=== PATIENT | female | born 1970 | race Caucasian/White ===

== ENCOUNTER 2019-12-11 21:33 | Inpatient (IN) | payer OTHER, SELFPAY ==
--- NOTE | ~2019-12-11 | XR_ITS ---
XR chest 1V portable DATE: 12/11/2019 22:00 INDICATION: Chest pain. STEMI. TECHNIQUE: Portable upright AP chest on 12/11/2019 at 2154 hours COMPARISON: 12/20/2018 2 view chest FINDINGS: Normal heart size. No pulmonary vascular congestion or pleural effusion or pneumothorax. No pulmonary infiltrate or consolidation. Degenerative spurring of the thoracic spine. IMPRESSION: No active cardiopulmonary disease Reviewed, dictated and finalized at location A.
[2019-12-11 21:38] VITALS: BP 121/87; PULSE 88; RESP 16; TEMP 36.5; O2SAT 100
--- NOTE | 2019-12-11 21:38 | ED.CHESTPAIN ---
HPI - Chest Pain General Chief Complaint: Chest Pain Stated Complaint: CP Time Seen by Provider: 12/11/19 21:35 Source: patient and RN notes reviewed Mode of arrival: other Limitations: no limitations History of Present Illness HPI narrative: Pt is a 48 y/o female who presents to the ED with c/o midsternal chest pain that radiates to her left arm that began at 7 PM today. Pt has a hx of GERD. Pt also reports back pain, dyspnea, chills, and diaphoresis, but denies cough and fever. Pt denies recent travel, cough, myalgias, no known COVID contacts. Pt without history of heart problems per patient. She is a daily smoker. Pt denies taking any anticoagulants and any ASA today. MD complaint: chest pain Onset (ago): hour(s) (2) Timing of current episode: constant Pain location: other (midsternal) Pain radiation: left arm Associated symptoms: diaphoresis, dyspnea and other (chills, back pain) Treatment prior to arrival: none Related Data Allergies Allergy/AdvReac Type Severity Reaction Status Date / Time No Known Allergies Allergy Verified 12/20/18 11:33 Review of Systems Review of Systems: Narrative: CONSTITUTIONAL: Reports chills. Denies fever. CARDIOVASCULAR: Reports mnidsternal chest pain and diaphoresis. RESPIRATORY: Reports dyspnea. Denies cough. MUSCULOSKELETAL: Reports back pain. All systems reviewed & are unremarkable except as noted in HPI and below PMFSH Past Medical History Medical History (Updated 12/11/19 @ 21:57 by Marva Valiente) HTN (hypertension) noncompliant Molar TIA (transient ischemic attack) Surgical History Surgical History (Updated 12/11/19 @ 21:57 by Marva Valiente) History of tubal ligation Hx of section x3 Hx of cholecystectomy Social History Social History (Updated 12/11/19 @ 21:57 by Marva Valiente) Smoking packs per day: 1 Smoking cigarettes per day: 20.0 Years smoked: 26 Smoking pack-years: 26.00 Smoking status: Current every day smoker Tobacco type: cigarettes Exam Narrative: Exam Narrative: CONSTITUTIONAL: Awake, alert, conversant, moaning, mildly diaphoretic HEAD: Normocephalic, atraumatic. EYES: EOMI, conjunctiva clear ENT: Nares patent. Mucous membranes moist. NECK: Full range of motion RESPIRATORY: No respiratory distress, speaking in full sentences, no tachypnea HEART: Regular rate ABDOMEN: Non distended, non tender EXTREMITIES: Normal range of motion. No edema. Radial pulses present (2+, left) SKIN: Warm, dry, no rash. NEUROLOGIC: No focal deficits. Alert and oriented x3. Course Course Emergency Course: Pt presented for evaluatoin of chest pain and found to have + STEMI, anterolateral ST elevation with reciprocal changes on EKG. Pt hemodynamically stable. Pt given ASA in ED. Also given nitro and morphine. Dr. Lora recommended 180 Brilinta and loading bolus of heparin. Pt without any recent travel, no myalgia, fever. Pt not presenting with COVID type symptoms. Per Dr. Lora, patient to be taken to labeling associate. Lab results notable for elevated troponin. No severe electrolyte derangement. Pt updated, and taken to labeling associate urgently. Pt remained hemodynamically stable while in the ED. Consultations Consultation #1: Discussed case with Dr. Lora (Dust Box Tender). Accepts pt to Associate Project Manager, advises heparin bolus and 180 mg PO Brilinta. Requests pt wears a mask to Associate Project Manager. Date: 12/11/19 Time: 21:45 Vital Signs Vital signs: Vital Signs Temperature 36.5 C 12/11/19 21:38 Pulse Rate 88 12/11/19 21:38 Respiratory Rate 16 12/11/19 21:38 Blood Pressure 121/87 12/11/19 21:38 Pulse Oximetry 100 12/11/19 21:38 Temperature 36.5 C 12/11/19 21:38 Pulse Rate 86 12/11/19 22:01 Respiratory Rate 18 12/11/19 21:59 Blood Pressure 130/89 12/11/19 21:59 Pulse Oximetry 100 12/11/19 21:59 MDM - Chest Pain Lab Data Result diagrams: 12/11/19 21:49 12/11/19 21:49 Labs: Lab Results 12/11/1912/10
--- NOTE | 2019-12-11 21:40 | ECG_ITS ---
Measurements Intervals [place] Rate: 86 P: 64 WA: 146 QRS: 15 QRSD: 96 T: -16 QT: 339 QTc: 408 Interpretive Statements SINUS RHYTHM ST ELEVATION SEPTAL MYOCARDIAL INFARCTION- ACUTE HIGH LATERAL ST ELEVATION MYOCARDIAL INJURY- ACUTE BASELINE ARTIFACT- II, III ABNORMAL ECG Electronically Signed On 12-15-2019 16:28:37 CDT by Faraz Barrera D.O.
[2019-12-11] MEDS: ONDANSETRON HCL ODT 4 MG TABLET (21:47)
[2019-12-11] MEDS: MORPHINE SULFATE 2 MG/ML INJ (21:47)
[2019-12-11] MEDS: ASPIRIN 81 MG CHEWABLE TABLET 324 MG PO (21:48)
[2019-12-11] MEDS: TICAGRELOR 90 MG TABLET 180 MG PO (21:51)
[2019-12-11 21:59] VITALS: BP 130/89; PULSE 90; RESP 18; O2SAT 100
[2019-12-11 22:01] VITALS: PULSE 86
[2019-12-11 22:06] LABS: Basophils Percent Auto 0.3 % (0.2-1.2); Eosinophils Percent Auto 0.2 % (0-4.4); Hematocrit 40.7 % (37.0-47.0); Hemoglobin 13.3 g/dL (12.0-15.0); Immature Granulocyte Absolute 0.09 K/mm3 (0.00-0.031); Immature Granulocyte Percent A 0.6 % (0-0.5); Lymphocytes Absolute Auto 2.01 K/mm3 (0.9-3.2); Mean Corpuscular HGB Conc 32.7 g/dl (32-36); Mean Corpuscular Hemoglobin 29.1 pg (26-34); Mean Corpuscular Volume 89.1 fl (80-100); Monocytes Absolute Auto 0.8 K/mm3 (0.1-0.6); Monocytes Percent Auto 5.6 % (2.6-8.5); Neutrophils Absolute Auto 11.4 K/mm3 (1.3-6.7); Neutrophils Percent Auto 79.3 % (45.5-73.1); Platelet Count Result 425 k/mm3 (150-375); Red Blood Count 4.57 M/mm3 (4.2-5.4); White Blood Count 14.3 K/mm3 (4.5-10.0)
[2019-12-11] MEDS: MORPHINE SULFATE 4 MG/ML INJ IV PUSH (22:14)
[2019-12-11 22:22] LABS: INR 0.9; Prothrombin Time 11.6 Seconds (11.1-14.7)
[2019-12-11 22:23] LABS: Alanine Aminotransferase 12 U/L (4-35); Albumin Level 4.6 g/dL (3.5-5.1); Alkaline Phosphatase 63 U/L (38-126); Aspartate Amino Transferase 25 U/L (14-36); Bilirubin,Total 0.3 mg/dL (0.2-1.3); Blood Urea Nitrogen 22 mg/dL (7-17); Calcium 9.5 mg/dL (8.4-10.2); Carbon Dioxide 22 mmol/L (22-30); Chloride 97 mmol/L (98-107); Estimated CRCL calculation 119 ml/min; Estimated Glomerular Filt Rate > 60; Glucose 131 mg/dL (65-105); Potassium 4.3 mmol/L (3.4-5.0); Sodium 130 mmol/L (137-145)
[2019-12-11 22:27] LABS: NT Pro B Type Natriuretic Pept 162 PG/ML (5-100)
[2019-12-11 22:32] LABS: Troponin I 0.074 ng/mL (0.000-0.034)
--- NOTE | 2019-12-11 23:59 | WPDCARDPROC ---
Cardiac Cath Procedure Note Date of procedure:: 12/11/19 Performing physician:: Sav Lora MD Indication:: Acute coronary syndrome -anteroseptal ST-elevation myocardial infarction Procedure Procedure note:: CARDIAC CATHETERIZATION AND EMERGENT PERCUTANEOUS CORONARY INTERVENTION REPORT DATE OF PROCEDURE: 12/11/2019 INDICATION FOR PROCEDURE: ACUTE CORONARY SYNDROME - ANTEROSEPTAL ST ELEVATION MYOCARDIAL INFARCTION BRIEF CLINICAL HISTORY: 48-year-old female with no known prior cardiac history; heavy tobacco abuse [facility] with approximately 2 hour history of chest discomfort. Her EKG showed ST elevation in the anteroseptal leads. Cardiac catheterization lab was activated for primary PCI. PROCEDURES PERFORMED: 1. Left heart catheterization- Selective left and right coronary angiogram; left ventriculogram and hemodynamic assessment 2. Primary percutaneous coronary intervention- Balloon angioplasty and stenting of totally occluded ostial LAD with placement of 2 sirolimus eluting stents ( 3.0 x 26 mm, 2.5 x 33 mm) from ostial-proximal to mid LAD in an overlapping fashion with yazidi of JULIENNE 3 flow. 3. Selective right common femoral angiogram and deployment of Angio-Seal hemostatic device 4. Moderate sedation-CPT code 08447 MODERATE SEDATION: Midazolam 1 mg; fentanyl 25 mcg. Start time 2246 , Stop time 2351 ; Total [id number] time 65 minutes; Elsa Barnes RN was trained observer for moderate sedation. ACCESS SITE: Right common femoral artery PROCEDURE NOTE: After obtaining informed consent, patient was emergently brought to catheterization lab and prepped and draped in a usual sterile manner. After local anesthesia with lidocaine, right common femoral artery access was taken with micropuncture needle followed by insertion of a 6 Cameroonian sheath. Selective left and right coronary angiogram was performed using 6 Cameroonian 3.5 CLS guide catheter and JR4 catheters respectively. Orthogonal views were taken. After completion of percutaneous coronary intervention, 5 Cameroonian pigtail catheter was advanced to the LV cavity, LV pressures were measured followed by left ventriculogram. The catheter was flushed, and withdrawn from the LV cavity, and gradient across the aortic valve were major on the pullback. The angiographic findings and details of intervention are given below. FINDINGS: LEFT MAIN CORONARY: The left main coronary artery is a medium caliber vessel without angiographically significant focal stenosis. LEFT ANTERIOR DESCENDING ARTERY: The LAD is totally occluded at its ostium. After wiring the stenosis and after balloon angioplasty, the angiogram showed diffuse disease in the proximal and mid LAD. The LAD tapers distally and reaches the LV apex. the 1st diagonal branch has subtotal occlusion at its ostium and is a small to medium caliber vessel. Second diagonal branch is a major diagonal branch which has moderate diffuse disease in the proximal segment. LEFT CIRCUMFLEX ARTERY: The left circumflex artery is a small to medium-sized vessel with hazy moderate stenosis at its ostium which improved after stenting of the ostial LAD; diffuse 70-80% stenosis is seen in the in the mid segment. The vessel essentially continues as OM branch. The main vessel is a very small caliber vessel and continues in the AV groove. RIGHT CORONARY ARTERY: the RCA is a large size, dominant vessel. Mild diffuse disease is seen in RCA. The PDA branch is a medium to large size vessel and has mild diffuse disease. PLV branch is a medium-sized vessel and has high-grade about 95% stenosis in the proximal segment. LEFT VENTRICULOGRAM: Overall LV systolic function is preserved with ejection fraction about 55%; anterior wall is hypokinetic. LVEDP elevated at 25 mmHg. HEMODYNAMIC ASSESSMENT: Opening pressure 101/82 mmHg , closing pressure 108/65 mmHg , LVEDP mmHg 25 mmHg; no significant gradient across aortic valve on the pullb
[2019-12-12] VITALS (15 sets, daily range): BP systolic 94–120; BP diastolic 48–78; PULSE 65–85; RESP 13–27; TEMP 36.5–36.6; O2SAT 97–100; BMI 27.1
--- NOTE | 2019-12-12 | ECG_ITS ---
Measurements Intervals [place] Rate: 81 P: 70 UT: 172 QRS: 56 QRSD: 97 T: 89 QT: 372 QTc: 432 Interpretive Statements SINUS RHYTHM CANNOT RULE OUT SEPTAL INFARCT, AGE INDETERMINATE BORDERLINE T WAVE ABNORMALITY- LATERAL LEADS BASELINE ARTIFACT- I, III, V1 ABNORMAL ECG Electronically Signed On 12-12-2019 16:48:00 CDT by Faraz Barrera D.O.
--- NOTE | 2019-12-12 00:16 | PC.NURSE ---
This patient, Coni Barros, was admitted to Intensive Care Unit-12. Patient/family oriented to hospital policies and general routines including ID bracelet, bed and alarms, visiting hours, pain management, procedures, bathroom and other care routines, personal items, smoking policy, room service/diet, and visiting hours. Valuables list has been completed. Information on how to activate the Rapid Response Team has been discussed. Patient/Family are encouraged to report perceived risks to care and to ask questions if they do not understand what they are told or what they should do.
--- NOTE | 2019-12-12 00:19 | PM.IMHP ---
H&P: HPI History of Present Illness Chief complaint: Stemi - Narrative: Coni Barros is a 48 year old female Date of service: 12/11/2019 chief complaint: Chest pain x2 hours HPI: 48-year-old female with no known prior cardiac history; heavy tobacco abuse was brought to [facility] ER with chest pain which started about 2 hours prior to arrival. Prior to that, patient states that she was in her usual state of health. Her symptoms were associated with shortness of breath, dizziness without syncope. She denies any prior cardiac history. She is a heavy smoker. Patient's EKG in the ER showed sinus rhythm, ST-elevation in the anteroseptal leads. Cardiac catheterization was activated for primary PCI. Patient was given aspirin and loading dose of ticagrelor in the ER. She was also given heparin. Apparently, patient vomited, therefore she was re-loaded with ticagrelor 180 mg in the labor economics teacher. Her emergent coronary angiogram showed flush occlusion of ZVD-hskkhih-zafhxow vessel. She underwent complex, primary PCI with balloon angioplasty and stenting of ostial, proximal -mid LAD using 2 sirolimus eluting stents in an overlapping fashion with samaritan of JULIENNE 3 flow. Coronary angiogram also showed high-grade stenosis in the mid LCX, and RPL branch. Ejection fraction about 55% with anterior wall hypokinesis. Patient's chest pain resolved after completion of successful Intervention. Review of Systems Constitutional: Constitutional: Denies chills, Denies fatigue, Denies fever(s) and Denies headache(s) Eyes: Eyes: Reports as per HPI, Denies change in vision, Denies loss of vision and Denies eye pain ENT: Reports as per HPI, Reports Normal hearing present, Denies headache(s), Denies lip swelling, Denies epistaxis and Denies sore throat Cardiovascular: Cardiovascular: Reports as per HPI, Reports chest pain, Denies syncope, Denies irregular heart rhythm, Reports lightheadedness and Reports dyspnea Respiratory: Respiratory: Reports as per HPI, Denies cough, Reports dyspnea and Denies wheezing Gastrointestinal: Gastrointestinal: Reports as per HPI, Denies abdominal pain, Denies melena, Denies nausea and Denies vomiting Genitourinary: Genitourinary: Reports as per HPI Musculoskeletal: Musculoskeletal: Reports as per HPI, Denies myalgias, Denies muscle cramps and Denies muscle weakness Integumentary/Breasts: Skin/Breast: Reports as per HPI, Denies pruritus and Denies rash Neurologic: Reports as per HPI, Reports Normal hearing present, Denies behavioral changes, Denies syncope, Denies headache(s) and Denies loss of vision Psychiatric: Psychiatric: Reports as per HPI, Reports anxiety and Denies behavioral changes Endocrine: Endocrine: Reports as per HPI, Denies fatigue, Denies polydipsia and Denies polyuria Hematologic/Lymphatic: Hematologic/Lymphatic: Reports as per HPI, Denies easy bleeding and Denies easy bruising Allergic/Immunologic: Allergic/Immunologic: Reports as per HPI, Denies lip swelling and Denies wheezing PMFSH Past Medical History Medical History HTN (hypertension) noncompliant Molar TIA (transient ischemic attack) Surgical History Surgical History History of tubal ligation Hx of section x3 Hx of cholecystectomy Social History Social History Smoking packs per day: 1 Smoking cigarettes per day: 20.0 Years smoked: 26 Smoking pack-years: 26.00 Smoking status: Current every day smoker Tobacco type: cigarettes Alcohol intake: never Substance use: never Spiritual care concerns: No Meds Home Medications and Allergies Allergies Allergy/AdvReac Type Severity Reaction Status Date / Time No Known Allergies Allergy Verified 12/20/18 11:33 Vital Signs Vital Signs - 24 hr 12/11/19 21:38 12/11/19 21:59 12/11/19 2
[2019-12-12 01:13] LABS: Alanine Aminotransferase 64 U/L (4-35); Albumin Level 3.6 g/dL (3.5-5.1); Alkaline Phosphatase 76 U/L (38-126); Aspartate Amino Transferase 198 U/L (14-36); Bilirubin,Total 0.3 mg/dL (0.2-1.3); Blood Urea Nitrogen 18 mg/dL (7-17); Calcium 8.4 mg/dL (8.4-10.2); Carbon Dioxide 20 mmol/L (22-30); Chloride 101 mmol/L (98-107); Cholesterol 176 mg/dL (0-200); Estimated CRCL calculation 128 ml/min; Estimated Glomerular Filt Rate > 60; Glucose 110 mg/dL (65-105); HDL Direct 59 mg/dL; Potassium 3.9 mmol/L (3.4-5.0); Sodium 132 mmol/L (137-145); Triglycerides 65 mg/dL (<150)
[2019-12-12 01:18] LABS: LDL Cholesterol Direct 101 mg/dL
[2019-12-12] MEDS: ATORVASTATIN 40 MG TABLET 80 MG PO (08:21)
[2019-12-12] MEDS: LOSARTAN POTASSIUM 25 MG TABLET PO (08:22)
[2019-12-12] MEDS: METOPROLOL TARTRATE 12.5 MG TABLET PO (08:22)
[2019-12-12] MEDS: TICAGRELOR 90 MG TABLET PO (08:22)
[2019-12-12] MEDS: ASPIRIN 81 MG ENTERIC TABLET PO (08:22)
--- NOTE | 2019-12-12 11:10 | PC.NURSE ---
Received patient from ICU via wheelchair with ICU staff. Patient awake and alert. Steady on feet and independent from wheelchair to bed. athletic monitor placed on patient. Patient denies pain and no distress noted. Stat seal noted to right groin without hematoma. Gauze and tegaderm dry and intact to site. Patient settled in room and oriented to unit and call light.
--- NOTE | 2019-12-12 11:11 | PC.NURSE ---
Patient transferred to [facility] at 1105. Patient had no medications to transfer with her.
--- NOTE | 2019-12-12 11:41 | WPDCNINT ---
Assessment and Plan Assessment and plan (1) ST elevation KS (STEMI): Qualifiers: Involved coronary artery: other anterior wall coronary artery Qualified Code(s): I21.09 - ST elevation (STEMI) myocardial infarction involving other coronary artery of anterior wall Code(s): I21.3 - ST elevation (STEMI) myocardial infarction of unspecified site Status: Acute Assessment and Plan: patient presented with chest pain, which shortness of breath, diaphoresis, with radiation to the left arm. EKG showed anterolateral myocardial injury - patient had a PCI/balloon angioplasty with stent x2 to proximal-mid segment of the LAD. - Patient also has 70-80% diffuse stenosis of mid LCX - will hydrate about 95% stenosis of proximal segment of RPL branch preserved overall LV systolic function, EF 55%, anterior wall was hypokinetic. - Patient started on aspirin, Brilinta, beta-mani, atorvastatin and losartan (2) Tobacco abuse: Code(s): Z72.0 - Tobacco use Status: Acute Assessment and Plan: counseled patient on cessation of smoking, discussed with the regarding negative effects of nicotine Additional Plan discussed with patient updated with her condition and plan of care. Code status: Full code Critical care time spent: 37 minutes Due to a high probability of clinically significant, life threatening deterioration, the patient required my highest level of preparedness to intervene emergently and I personally spent this critical care time directly and personally managing the patient. This critical care time included obtaining a history; examining the patient; pulse oximetry; ordering and review of studies; arranging urgent treatment with development of a management plan; evaluation of patient's response to treatment; frequent reassessment; and discussions with other providers. It was exclusive of separately billable procedures and treating other patients and teaching time. Please see Assessment and Plan section and the rest of the note for further information on patient assessment and treatment Nutritionist Public Health Consult Note Consult date: 12/12/19 Time Seen: 06:58 Reason for consult: STEMI, status post PCI /balloon angioplasty and WALI x2 to LAD. EF 55% HPI: Coni Barros is a 48 year old female with significant past medical history of smoking, no known coronary artery disease the ED with complains of midsternal chest pain which started 2 hours prior to arrival. chest pain was this was with shortness of breath, dizziness and chest heaviness. Chest pain also radiated to the arm. EKG showed anterolateral myocardial injury. Patient was taken emergently to cardiac catheterization lab for coronary angiogram status post PCI/balloon angioplasty and WALI x2 to LAD, EF 55%. Patient also has a high-grade stenosis of the proximal segment of RPL branch and 70-80% diffuse stenosis of mid left circumflex. Patient was transferred to the ICU for further management. patient seen and examined the ICU. Patient is asymptomatic, states he feels much better. patient states she was to go home, is upset/angry for no reason. Ungrateful. Denies any chest pain, shortness of breath, abdominal pain, nausea vomiting at this time Review of Systems Review of Systems: All systems reviewed & are unremarkable except as noted in HPI and below PMFSH Past Medical History Medical History HTN (hypertension) noncompliant Molar TIA (transient ischemic attack) Surgical History Surgical History History of tubal ligation Hx of section x3 Hx of cholecystectomy Social History Social History Smoking packs per day: 1 Smoking cigarettes per day: 20.0 Years smoked: 20 Smoking pack-years: 20.00 Smoking status: Current every day smoker Tobacco type: cigarettes
--- NOTE | 2019-12-12 11:59 | PC.NURSE ---
Called to room by patient. Patient states she has to complete her unemployment TODAY. Patient states she wants to leave no matter what. I explained to patient that she just had a cardiac procedure and it is strongly recommended that she stay in the hospital for another night. Patient states she understands the risks and wants to leave. Called nursing vocational rehabilitation supervisor and notified him of same. Bhaun nursing vocational rehabilitation supervisor to come up to floor and discuss further with patient.
--- NOTE | 2019-12-12 12:10 | PC.NURSE ---
Dr. Lora here to see patient and discuss risks of leaving today. Bhanu nursing sample room supervisor to room with Dr. Lora.
--- NOTE | 2019-12-12 12:44 | PC.NURSE ---
Patient remains insistent on leaving today. All risks of leaving AMA have been explained to patient by Dr. Garcia up to and including the risk of and/or recurring NM. Patient's d/c meds were transmitted to [facility] by Dr. Lora and patient did receive notice that they were ready for pickup. I explained to patient the importance of obtaining these meds and taking them as prescribed. Patient signed AMA papers and was escorted to front door by ASSISTANT MEDIA PLANNER. Bhanu nursing supervisor coil winding aware. Notified Roseline dela cruz RN.
--- NOTE | 2019-12-12 18:16 | PC.NURSE ---
I was called by the patient's RN and notified of patient's desire to leave against medical advice. I went bedside. I discussed the importance of patient staying to ensure proper post heart catheter care including monitoring of new medications and starting new home prescriptions. It was stressed to the patient the need to stay due to her home medications were not set up yet. Coni was told if she did not continue on the brilinta, her heart stents will likely reocclude and result in another heart attack or . She was adamant that she was going to leave despite being educated on imminent risks of doing so. I went to desk and called Dr Lora, who happened to be near by and explained the situation to him. He was already on the unit and accompanied myself back to the patient's room. Dr Lora then attempted to convince the patient again to stay for monitoring overnight and to allow for home medications to be set up for her. Dr Lora also bluntly stressed risk of or recurrent FL in the near future if patient failed to comply with pharmacotherapy. Patient expressed understanding and seemed agreeable to stay. Dr Lora and myself then left patient's room. Not long after, industrial staff nurse again called me to discuss patient's desire to leave AMA. I returned to room to find patient dressed in street clothes and she told me her son was here to pick her up. She signed AMA papers and was taken out by wheelchair. Dr Lora was later updated patient left AMA.
--- NOTE | 2019-12-14 11:53 | PM.DS ---
DS: Diagnosis Admitting Diagnosis Admitting Diagnosis: ST elevation (STEMI) myocardial infarction involving other coronary artery of anterior wall DS: Summary Hospital Course Reason for hospitalization: Acute coronary syndrome-anteroseptal ST-elevation microinfarction Hospital Course: 48-year-old female with no known prior cardiac history; heavy tobacco abuse was brought to [facility] ER on 12/11/2019 with chest pain which started about 2 hours prior to arrival. Her EKG showed ST-elevation in the anteroseptal leads. Cardiac catheterization was activated for primary PCI. Her emergent coronary angiogram showed flush occlusion of [id number]-[id number]-[id number] vessel. She underwent complex, primary PCI with balloon angioplasty and stenting of ostial, proximal -mid LAD using 2 sirolimus eluting stents in an overlapping fashion with worship of JULIENNE 3 flow. Coronary angiogram also showed high-grade stenosis in the mid LCX, and RPL branch. Ejection fraction about 55% with anterior wall hypokinesis. Patient's chest pain resolved after completion of successful Intervention. Patient was later admitted to the ICU. In the morning, event to evaluate the patient and she was feeling better and was chest pain-free. However, she indicated that she wanted to leave the hospital. She said that she was bored and had better things to do at home . I discussed the importance of hospital stay due to the fact that she just presented with massive anteroseptal SD and status post complex PCI with placement of 2 drug-eluting stents. Patient voiced understanding. She was later transferred to the telemetry bed. I was called by the rooming house keeper that patient wants to leave AMA. I went back to patient's room along with the rooming house keeper and discuss with her the importance of hospital stay for another night. She was counseled about medication compliance as well. Patient was cautioned that she has risk for rehospitalization, and risk for stent thrombosis, recurrent SD and she is not compliant with medications. She seemed to voiced understanding with some reluctance. Later in the day, I was informed by the rooming house keeper that patient had left against medical advice soon after the conversation in the morning. Time spent discussing smoking cessation with patient: 3 to 10 minutes Status at Discharge Cognitive/behavioral status at discharge: Patient appeared irritable, however, she stated that she is able to make decisions for herself. Functional status at discharge: independent ambulation Time Spent with Patient Time attestation: Total time spent providing and/or coordinating discharge services: 40 minutes which included evaluation of the patient, counseling regarding hospital stay and medication compliance, coordination with the care team. Time spent: Greater than 30 minutes Exam Const: General: no acute distress, alert and awake HENMT: Head: normocephalic and atraumatic Ears: hearing grossly normal bilaterally and external ears normal General nose exam: Normal external nose present and no epistaxis Face and sinus: normal facial exam and no ecchymosis Mouth: Yes tongue normal and Yes moist mucous membranes Teeth and gingiva: dentition normal Eyes: Conjunctivae: conjunctivae normal Sclera: sclerae normal Pupils: Equal, round and reactive pupils present EOM: EOMs intact bilaterally Neck: Neck: normal visual inspection, supple and no JVD Thyroid: thyroid normal Carotids: normal carotid upstroke Resp: Effort & Inspection: normal respiratory effort and able to speak in complete sentences Auscultation: clear to auscultation bilaterally Cardio: Jugular venous distension: no JVD Rate: regular rate Rhythm: regular rhythm Heart sounds: S1 normal heart sound present, S2 normal heart sound present and no murmurs GI: Inspection: normal to inspection GI Palp: No abdominal tenderness Auscultation: normal bowel sounds Skin: Other: no rash on exposed areas, no cya
== END 2019-12-12 12:40 | disposition left against medical advice (07) | DRG 174 ==
LOC: ANHED 21:54 → ANHICU 22:03 → ANH3MED 12-12 11:28
PROVIDERS: Admitting Provider Internal Medicine Cardiovascular Disease; Emergency Provider Emergency Medicine; Visit Provider Internal Medicine Cardiovascular Disease
PROC: 4A023N7 Measurement of Cardiac Sampling and Pressure, Left Heart, Percutaneous Approach (ICD-10-PCS; CPT 93452; principal; 2019-12-11 22:30)
PROC: 027035Z Dilation of Coronary Artery, One Artery with Two Drug-eluting Intraluminal Devices, Percutaneous Approach (ICD-10-PCS; 2019-12-11 22:30)
PROC: 027035Z Dilation of Coronary Artery, One Artery with Two Drug-eluting Intraluminal Devices, Percutaneous Approach (ICD-10-PCS; 2019-12-11 22:30)
DX: I21.09 ST elevation (STEMI) myocardial infarction involving other coronary artery of anterior wall (principal); F17.210 Nicotine dependence, cigarettes, uncomplicated; I25.10 Atherosclerotic heart disease of native coronary artery without angina pectoris
CPT/HCPCS: 36415; 71045; 80053; 80061; 83880; 84484; 85025; 85610; 85730; 93005; 93458; 96374; 96375; 99291; A9270; C1725; C1760; C1769; C1874; C1887; C1894; C9606; G0269; J1644; J2250; J2270; J3010; J7030

== ENCOUNTER 2020-07-06 15:00 | Outpatient (RCR) | payer OTHER, SELFPAY ==
[2020-04-14 15:22] VITALS: PULSE 73
--- NOTE | 2020-05-31 17:08 | PCCPR ---
Coni absent today due to migraine.
== END 2020-07-06 18:51 | disposition home or self-care (01) ==
LOC: ANHCPREHAB 15:00
PROVIDERS: PCP Emergency Medicine; Visit Provider Nurse Practitioner Adult Health
DX: Z95.5 Presence of coronary angioplasty implant and graft (principal); I25.2 Old myocardial infarction
CPT/HCPCS: 93798

== ENCOUNTER 2021-07-16 14:42 | Emergency (ER) | payer OTHER, SELFPAY ==
[2021-07-16 14:51] VITALS: BP 115/61; PULSE 79; RESP 18; TEMP 36.5; O2SAT 98
--- NOTE | 2021-07-16 15:44 | ED.URI ---
HPI - URI/Sore Throat General Chief Complaint: Upper Respiratory Infection Stated Complaint: Cough Time Seen by Provider: 07/16/21 15:17 Source: patient and RN notes reviewed Mode of arrival: ambulatory Limitations: no limitations History of Present Illness HPI Narrative: Patient presents today with a 1 week history of postnasal drip, cough, headache, chills, body aches. Denies sore throat, shortness of breath, fever. She recently had a COVID-19 test that was negative. Patient works in a [employer] and states that her copious postnasal drip, cough, and copious runny nose prevents her from working appropriately. She has not tried any [id number]-[id number] medications for symptoms prior to arrival, however, she did try a humidifier at home without relief. Related Data Home Medications Medication Instructions Recorded Confirmed aspirin [Aspirin Low Dose] 81 mg PO DAILY 04/14/20 07/16/21 atorvastatin 80 mg PO HS 04/14/20 07/16/21 metoprolol tartrate 12.5 mg PO BID 04/14/20 07/16/21 ticagrelor [Brilinta] 90 mg PO Q12H 04/14/20 07/16/21 Allergies Allergy/AdvReac Type Severity Reaction Status Date / Time No Known Allergies Allergy Verified 07/16/21 15:15 Review of Systems Review of Systems: CONSTITUTIONAL: Denies body aches, fever. + Chills, body aches EYES: Denies visual changes, redness, or discharge. ENT: Denies rhinorrhea, congestion, sore throat, or otalgia.+ Postnasal drip CARDIOVASCULAR: Denies chest pain, palpitations, or edema. RESPIRATORY: Denies dyspnea.+ Cough GASTROINTESTINAL: Denies abdominal pain, nausea, vomiting, or diarrhea. GENITOURINARY: Denies dysuria or hematuria. SKIN: Denies rash, itching, or wounds. MUSCULOSKELETAL: Denies back pain, joint pain, or myalgia. NEUROLOGIC: Denies numbness, tingling, or weakness.+ Headache PSYCH: Denies depression or anxiety. [facility] Past Medical History Medical History (Updated 07/16/21 @ 15:50 by Olga Burgos, [facility], ) HTN (hypertension) noncompliant Molar TIA (transient ischemic attack) Surgical History Surgical History History of tubal ligation Hx of section x3 Hx of cholecystectomy Family History Family History Other Adopted Social History Social History Smoking packs per day: 0.75 Smoking cigarettes per day: 15.0 Years smoked: 30 Smoking pack-years: 22.50 Smoking status: Former smoker Tobacco type: cigarettes and cigars Alcohol intake: never Substance use: never Spiritual care concerns: No Comments At time of signature, I have reviewed and agree with nursing past medical, surgical, social and family history unless otherwise noted. Please see nursing chart for further information. There is no relevant family history pertinent to the presenting complaint Exam Narrative: GENERAL: Well-appearing, well-nourished, and in no acute distress. HEAD: Normocephalic, atraumatic. EYES: EOMI. No redness or drainage. Conjunctivae normal. ENT: Mucous membranes pink and moist. Nares clear. No rhinorrhea. TMs normal bilaterally. Throat normal. Uvula midline. Clearing her throat constantly. NECK: Normal AROM. Supple. No lymphadenopathy. CHEST: No respiratory distress. Clear to auscultation. HEART: Regular rate and rhythm. No murmur appreciated. Normal peripheral pulses. ABDOMEN: Soft, nontender, nondistended, normal active bowel sounds. MUSCULOSKELETAL: No bony tenderness. EXTREMITIES: Normal range of motion. No edema. SKIN: Warm, dry, no rash. Capillary refill normal. Normal skin turgor. NEURO: No focal deficits. Alert and oriented x3. Gait steady. PSYCH: Normal affect. No signs of depression or anxiety. Course Vital Signs Vital signs: Vital Signs Temperature 97.7 F 07/16/21 14:51 Pulse Rate 79 07/16/21 14:51 Respir
== END 2021-07-16 15:55 | disposition home or self-care (01) ==
PROVIDERS: Emergency Provider Nurse Practitioner
DX: J06.9 Acute upper respiratory infection, unspecified (principal); Z86.73 Personal history of transient ischemic attack (TIA), and cerebral infarction without residual deficits; I10 Essential (primary) hypertension
CPT/HCPCS: 99213; G0463

== ENCOUNTER 2022-04-26 17:23 | Emergency (ER) | payer OTHER, SELFPAY ==
[2022-04-26 17:25] VITALS: BP 132/62; PULSE 80; RESP 16; TEMP 37.2; O2SAT 100
--- NOTE | 2022-04-26 17:51 | ED.EAR ---
HPI - Ear Problem General Chief complaint: Ear Stated complaint: L ear pain Time Seen by Provider: 04/26/22 17:51 History of Present Illness HPI Narrative: 51-year-old female presents to the emergency room for evaluation of left ear pain. Patient states that she has been experiencing left ear pain for 3 days. Has not taking any medications to alleviate her symptoms. Patient states the ear is hot and tender to touch. Related Data Home Medications Medication Instructions Recorded Confirmed aspirin 81 mg tablet,delayed 81 mg PO DAILY 04/14/20 07/16/21 release (Johanna Low Dose Aspirin) atorvastatin 80 mg tablet 80 mg PO HS 04/14/20 07/16/21 metoprolol tartrate 25 mg tablet 12.5 mg PO BID 04/14/20 07/16/21 ticagrelor 90 mg tablet (Brilinta) 90 mg PO Q12H 04/14/20 07/16/21 Allergies Allergy/AdvReac Type Severity Reaction Status Date / Time No Known Allergies Allergy Verified 04/26/22 17:48 Review of Systems Review of Systems: CONSTITUTIONAL: Denies fever, chills, or sweats. EYES: Denies visual changes, redness, or discharge. ENT: Reports left ear pain CARDIOVASCULAR: Denies chest pain, palpitations, or edema. RESPIRATORY: Denies cough or dyspnea. GASTROINTESTINAL: Denies abdominal pain, nausea, vomiting, or diarrhea. GENITOURINARY: Denies dysuria or hematuria. SKIN: Denies rash or itching. MUSCULOSKELETAL: Denies back pain, joint pain, or myalgia. NEUROLOGIC: Denies headache, numbness, dizziness, or weakness. PSYCHIATRIC: Denies anxiety or depression. [facility] Past Medical History Medical History (Updated 04/26/22 @ 17:52 by Javon Syed APRN) HTN (hypertension) noncompliant Molar TIA (transient ischemic attack) Surgical History Surgical History History of tubal ligation Hx of section x3 Hx of cholecystectomy Family History Family History Other Adopted Social History Social History Smoking packs per day: 0.75 Smoking cigarettes per day: 15.0 Years smoked: 30 Smoking pack-years: 22.50 Smoking status: Former smoker Tobacco type: cigarettes and cigars Alcohol intake: never Substance use: never Spiritual care concerns: No Exam Narrative: GENERAL: Well-appearing, well-nourished, no physical limitations, and in no acute distress. HEAD: Normocephalic, atraumatic. EYES: Conjunctivae normal, PERRLA and EOMI. ENT: Left ear: Real tenderness canal is erythematous and mildly swollen. TM is opaque. NECK: Supple. CHEST: Clear to auscultation. No respiratory distress. No wheezes rales or rhonchi. No tenderness. HEART: Regular rate and rhythm. No murmur heard. Normal peripheral pulses. EXTREMITIES: Normal range of motion. No edema. No clubbing or cyanosis SKIN: Warm, dry, no rash. No noted wounds NEURO: No focal deficits. Alert and oriented x3. MAEW. CN's II-XI intact bilaterally, normal gait PSYCH: Cooperative. Normal mood and affect. Course Vital Signs Vital signs: Vital Signs Temperature 37.2 C 04/26/22 17:25 Pulse Rate 80 04/26/22 17:25 Respiratory Rate 16 04/26/22 17:25 Blood Pressure 132/62 04/26/22 17:25 Pulse Oximetry 100 04/26/22 17:25 Oxygen Delivery Room Air 04/26/22 17:25 Temperature 37.2 C 04/26/22 17:25 Pulse Rate 80 04/26/22 17:25 Respiratory Rate 16 04/26/22 17:25 Blood Pressure 132/62 04/26/22 17:25 Pulse Oximetry 100 04/26/22 17:25 Oxygen Delivery Room Air 04/26/22 17:25 Medical Decision Making Vital Signs Vital Signs: Vital Signs Temperature 37.2 C 04/26/22 17:25 Pulse Rate 80 04/26/22 17:25 Respiratory Rate 16 04/26/22 17:25 Blood Pressure 132/62 04/26/22 17:25 Pulse Oximetry 100 04/26/22 17:25 Oxygen Delivery Room Air 04/26/22 17:25 Temperature 37.2 C 04/26/22 17:25 Pulse Rate 80 08
== END 2022-04-26 18:10 | disposition home or self-care (01) ==
LOC: ANHED 17:55
PROVIDERS: Emergency Provider Nurse Practitioner Family
DX: H60.92 Unspecified otitis externa, left ear (principal); H66.92 Otitis media, unspecified, left ear; I10 Essential (primary) hypertension; Z79.01 Long term (current) use of anticoagulants; Z79.82 Long term (current) use of aspirin; Z86.73 Personal history of transient ischemic attack (TIA), and cerebral infarction without residual deficits; Z87.891 Personal history of nicotine dependence
CPT/HCPCS: 99283

== ENCOUNTER 2023-08-04 14:36 | Emergency (ER) | payer OTHER, SELFPAY ==
--- NOTE | ~2023-08-04 | XR_ITS ---
EXAMINATION: XR chest 2V 08/04/2023 16:52 INDICATION: History of breath and congestion PROCEDURE: 2 view chest COMPARISON: Comparison to multiple prior studies sequentially, with oldest reviewed study dated 03/2014. FINDINGS: The lungs are clear. The cardiomediastinal silhouette is within normal limits. There are no pleural effusions. There is no pneumothorax suspected. IMPRESSION: 1: NO ACUTE CARDIOPULMONARY DISEASE. Reviewed, dictated and finalized at location B. [employer]
[2023-08-04 14:41] VITALS: BP 142/80; PULSE 89; RESP 18; TEMP 35.7; O2SAT 100
[2023-08-04 15:25] LABS: Influenza A QL RT-PCR Negative (Negative); Influenza B QL RT-PCR Negative (Negative); RSV RNA, RT-PCR Negative (Negative); SARS-CoV-2 RNA PCR Negative (Negative)
[2023-08-04] MEDS: AMOXICILLIN/CLAVULANATE K 875-125 MG TAB 1 TABLET PO (17:44)
[2023-08-04] MEDS: AZITHROMYCIN 250 MG TABLET 500 MG PO (17:44)
--- NOTE | 2023-08-04 17:46 | ED.GENADULT ---
HPI - General Adult General Chief complaint: Upper Respiratory Infection Stated complaint: coughing x 1 week, sinusitis Time Seen by Provider: 08/04/23 16:42 History of Present Illness HPI narrative: 52-year-old female presenting to the emergency department for complaint of body aches fatigue cough congestion. Patient denies any sick contacts. Patient states symptoms have been ongoing for approximately 1 week. Related Data Home Medications Medication Instructions Recorded Confirmed aspirin 81 mg tablet,delayed 81 mg PO DAILY 04/14/20 07/16/21 release (Johanna Low Dose Aspirin) atorvastatin 80 mg tablet 80 mg PO HS 04/14/20 07/16/21 metoprolol tartrate 25 mg tablet 12.5 mg PO BID 04/14/20 07/16/21 ticagrelor 90 mg tablet (Brilinta) 90 mg PO Q12H 04/14/20 07/16/21 Allergies Allergy/AdvReac Type Severity Reaction Status Date / Time No Known Allergies Allergy Verified 04/26/22 17:48 Review of Systems Review of Systems: All systems reviewed & are unremarkable except as noted in HPI and below PMFSH Past Medical History Medical History (Updated 08/05/23 @ 00:00 by Clement Contreras) HTN (hypertension) noncompliant Molar TIA (transient ischemic attack) Surgical History Surgical History History of tubal ligation Hx of section x3 Hx of cholecystectomy Family History Family History Other Adopted Social History Social History Smoking packs per day: 0.75 Smoking cigarettes per day: 15.0 Years smoked: 30 Smoking pack-years: 22.50 Smoking status: Former smoker Tobacco type: cigarettes and cigars Alcohol intake: never Substance use: never Spiritual care concerns: No Exam Narrative: APPEARANCE: Well appearing, no pain, no distress, well-nourished. HEAD: normocephalic, atraumatic. EYES: PERRLA/EOMI, conjunctivae clear. NOSE: Normal no drainage EARS:TMS clear with good light reflex. THROAT: Pharynx clear, no exudate. NECK: Supple. No adenopathy, no masses. RESPIRATORY: Airway patent, respirations nonlabored. Clear to auscultation bilaterally, no rales, rhonchi, wheezing. CARDIOVASCULAR: Regular rate and rhythm without murmurs rubs or gallops. ABDOMINAL: Soft, nontender, nondistended, normal bowel sounds MUSCULOSKELETAL: Moves all extremities. Strength/ROM intact, No edema, No calf tenderness. NEURO: Alert. Cranial nerves II through XII intact. Grossly intact SKIN: Warm, dry. Normal Color Course Course Emergency Course: 52-year-old female presents emergency department for evaluation of cough and congestion. Chest x-ray showed no acute cardiopulmonary abnormality. Due to the duration of the symptoms patient is being treated with antibiotics for a suspected pneumonia. Patient was updated on the results of the workup and plan for treatment. All questions and concerns were addressed. Vital Signs Vital signs: Vital Signs Temperature 96.3 F L 08/04/23 14:41 Pulse Rate 89 08/04/23 14:41 Respiratory Rate 18 08/04/23 14:41 Blood Pressure 142/80 H 08/04/23 14:41 Pulse Oximetry 100 08/04/23 14:41 Oxygen Delivery Room Air 08/04/23 14:41 Temperature 97.6 F 08/04/23 17:51 Pulse Rate 75 08/04/23 17:51 Respiratory Rate 16 08/04/23 17:51 Blood Pressure 140/70 08/04/23 17:51 Pulse Oximetry 100 08/04/23 17:51 Oxygen Delivery Room Air 08/04/23 16:25 Medical Decision Making Differential Diagnosis Differential Diagnosis: Pneumonia, COPD, influenza, RSV, COVID Vital Signs Vital Signs: Vital Signs Temperature 96.3 F L 08/04/23 14:41 Pulse Rate 89 08/04/23 14:41 Respiratory Rate 18 08/04/23 14:41 Blood Pressure 142/80 H 08/04/23 14:41 Pulse Oximetry 100 08/04/23 14:41 Oxygen Delivery Room Air 08/04/23 14:41 Temperature 97
[2023-08-04 17:51] VITALS: BP 140/70; PULSE 75; RESP 16; TEMP 36.4; O2SAT 100
== END 2023-08-04 17:51 | disposition home or self-care (01) ==
PROVIDERS: Student in an Organized Health Care Education/Training Program; Emergency Provider Emergency Medicine; PCP Internal Medicine Cardiovascular Disease
DX: J18.9 Pneumonia, unspecified organism (principal); Z20.822 Contact with and (suspected) exposure to COVID-19; I10 Essential (primary) hypertension; Z86.73 Personal history of transient ischemic attack (TIA), and cerebral infarction without residual deficits; Z87.891 Personal history of nicotine dependence; Z90.49 Acquired absence of other specified parts of digestive tract; Z79.82 Long term (current) use of aspirin
CPT/HCPCS: 71046; 87637; 99283; A9270

== ENCOUNTER 2023-09-03 14:55 | Emergency (ER) | payer OTHER, SELFPAY ==
[2023-09-03 15:00] VITALS: BP 105/74; PULSE 86; RESP 20; TEMP 36.2; O2SAT 97
[2023-09-03 17:49] LABS: Influenza A QL RT-PCR Positive (Negative); Influenza B QL RT-PCR Negative (Negative); RSV RNA, RT-PCR Negative (Negative); SARS-CoV-2 RNA PCR Negative (Negative)
--- NOTE | 2023-09-03 17:55 | ED.GENADULT ---
HPI - General Adult General Chief complaint: Upper Respiratory Infection Stated complaint: I don't feel good Time Seen by Provider: 09/03/23 16:45 History of Present Illness HPI narrative: Patient is a 52-year-old female who presents ER with cough and body aches. Ongoing for 1 day. No associated fever. Has mild congestion and cough. No known sick contacts. Related Data Home Medications Medication Instructions Recorded Confirmed aspirin 81 mg tablet,delayed 81 mg PO DAILY 04/14/20 07/16/21 release (Johanna Low Dose Aspirin) atorvastatin 80 mg tablet 80 mg PO HS 04/14/20 07/16/21 metoprolol tartrate 25 mg tablet 12.5 mg PO BID 04/14/20 07/16/21 ticagrelor 90 mg tablet (Brilinta) 90 mg PO Q12H 04/14/20 07/16/21 Allergies Allergy/AdvReac Type Severity Reaction Status Date / Time No Known Allergies Allergy Verified 04/26/22 17:48 Review of Systems Review of Systems: All systems reviewed & are unremarkable except as noted in HPI and below Constitutional: Constitutional: Reports chills, Reports fatigue and Denies fever(s) ENT: Reports nasal congestion and Denies sore throat Cardiovascular: Cardiovascular: Reports no additional cardiovascular complaints Respiratory: Respiratory: Reports cough, Denies dyspnea and Denies wheezing Musculoskeletal: Musculoskeletal: Reports myalgias PMFSH Past Medical History Medical History (Updated 09/03/23 @ 17:58 by Wayne Montanez MD) HTN (hypertension) noncompliant Molar TIA (transient ischemic attack) Surgical History Surgical History History of tubal ligation Hx of section x3 Hx of cholecystectomy Family History Family History Other Adopted Social History Social History Smoking packs per day: 0.75 Smoking cigarettes per day: 15.0 Years smoked: 30 Smoking pack-years: 22.50 Smoking status: Former smoker Tobacco type: cigarettes and cigars Alcohol intake: never Substance use: never Spiritual care concerns: No Exam Narrative: GENERAL: Well-appearing, well-nourished, and in no acute distress. HEAD: Normocephalic, atraumatic. CHEST: Clear to auscultation. No respiratory distress. HEART: Regular rate and rhythm. Normal peripheral pulses. EXTREMITIES: Normal range of motion. No edema. SKIN: Warm, dry, no rash. NEURO: Alert and oriented x3. PSYCH: Normal mood and affect. Course Course Emergency Course: Patient declined fluids. Informed of results. Discharge home. Vital Signs Vital signs: Vital Signs Temperature 97.1 F L 09/03/23 15:00 Pulse Rate 86 09/03/23 15:00 Respiratory Rate 20 09/03/23 15:00 Blood Pressure 105/74 09/03/23 15:00 Pulse Oximetry 97 09/03/23 15:00 Oxygen Delivery Room Air 09/03/23 15:00 Temperature 97.1 F L 09/03/23 15:00 Pulse Rate 86 09/03/23 15:00 Respiratory Rate 20 09/03/23 15:00 Blood Pressure 105/74 09/03/23 15:00 Pulse Oximetry 97 09/03/23 15:00 Oxygen Delivery Room Air 09/03/23 17:20 Medical Decision Making Vital Signs Vital Signs: Vital Signs Temperature 97.1 F L 09/03/23 15:00 Pulse Rate 86 09/03/23 15:00 Respiratory Rate 20 09/03/23 15:00 Blood Pressure 105/74 09/03/23 15:00 Pulse Oximetry 97 09/03/23 15:00 Oxygen Delivery Room Air 09/03/23 15:00 Temperature 97.1 F L 09/03/23 15:00 Pulse Rate 86 09/03/23 15:00 Respiratory Rate 20 09/03/23 15:00 Blood Pressure 105/74 09/03/23 15:00 Pulse Oximetry 97 09/03/23 15:00 Oxygen Delivery Room Air 09/03/23 17:20 Lab Data Labs: Lab Results 09/03/23 Range/Units 17:08 Influenza A (RT-PCR) Positive A (Negative) Influenza B (RT-PCR) Negative (Negative) RSV (RT-PCR) Negative (Negative) SARS-CoV-2 RNA (RT-PCR) Negative (Negative
[2023-09-03 18:20] VITALS: BP 132/68; PULSE 96; RESP 16; O2SAT 95
== END 2023-09-03 18:20 | disposition home or self-care (01) ==
PROVIDERS: Emergency Provider Emergency Medicine
DX: J11.1 Influenza due to unidentified influenza virus with other respiratory manifestations (principal); I10 Essential (primary) hypertension; Z86.73 Personal history of transient ischemic attack (TIA), and cerebral infarction without residual deficits; Z87.891 Personal history of nicotine dependence; Z20.822 Contact with and (suspected) exposure to COVID-19
CPT/HCPCS: 87637; 99283

== ENCOUNTER 2024-01-19 10:34 | Emergency (ER) | payer OTHER, SELFPAY ==
--- NOTE | 2024-01-19 10:38 | ED.URI ---
HPI - URI/Sore Throat General Chief Complaint: Upper Respiratory Infection Stated Complaint: left side congestion,ear pain Time Seen by Provider: 01/19/24 10:49 Source: patient and RN notes reviewed Mode of arrival: ambulatory Limitations: no limitations History of Present Illness HPI Narrative: 53-year-old female presents with concern for left ear congestion, sinus drainage. She reports cough. She reports symptoms started about week ago. She has not taken anything [id number]. MD elicited complaint: cough and nasal congestion Related Data Home Medications Medication Instructions Recorded Confirmed aspirin 81 mg tablet,delayed 81 mg PO DAILY 04/14/20 01/19/24 release (Johanna Low Dose Aspirin) atorvastatin 80 mg tablet 80 mg PO HS 04/14/20 01/19/24 metoprolol tartrate 25 mg tablet 12.5 mg PO BID 04/14/20 01/19/24 ticagrelor 60 mg tablet (Brilinta) 60 mg PO BID 01/19/24 01/19/24 Allergies Allergy/AdvReac Type Severity Reaction Status Date / Time No Known Allergies Allergy Verified 01/19/24 10:41 Review of Systems Review of Systems: CONSTITUTIONAL: Denies malaise, chills, sweats, or fever. EYES: Denies visual changes, redness, or discharge. ENT: Reports rhinorrhea, congestion, ear congestion. Denies sinus pain, otalgia and sore throat. CARDIOVASCULAR: Denies chest pain, palpitations, or edema. RESPIRATORY: Reports cough. Denies dyspnea. GASTROINTESTINAL: Denies abdominal pain, nausea, vomiting, diarrhea SKIN: Denies rash or itching. MUSCULOSKELETAL: Denies myalgia. NEUROLOGIC: Denies headache. All systems reviewed & are unremarkable except as noted in HPI and below PMFSH Past Medical History Medical History (Updated 01/19/24 @ 10:55 by Gris Sanchez NP) HTN (hypertension) noncompliant Molar TIA (transient ischemic attack) Surgical History Surgical History History of tubal ligation Hx of section x3 Hx of cholecystectomy Family History Family History Other Adopted Social History Social History Smoking packs per day: 0.75 Smoking cigarettes per day: 15.0 Years smoked: 30 Smoking pack-years: 22.50 Smoking status: Former smoker Tobacco type: cigarettes and cigars Alcohol intake: never Substance use: never Spiritual care concerns: No Comments At time of signature, agree with nursing past medical, surgical, social and family history. There is no relevant family history pertinent to the presenting complaint Exam Narrative: GENERAL: Well-appearing, well-nourished, and in no acute distress. HEAD: Normocephalic EYES: PERRLA, conjunctivae clear ENT: Nares clear, turbinates edematous and erythematous, clear discharge. Mucous membranes moist. TM pearly soria with dull light reflex on the left, sharp on the right; no tragal tenderness. Oropharynx not erythematous without lesions. Tonsils not enlarged and without exudate, no drooling, no hoarseness, no trismus, uvula midline. NECK: Supple. No lymphadenopathy CHEST: Clear to auscultation, breath sounds equal. No wheezing, rhonchi, rales, or stridor. No respiratory distress, speaks in full sentences. HEART: Regular rate and rhythm. No murmur heard. SKIN: Warm, dry, no rash. NEURO: Alert and oriented x3. PSYCH: Normal mood and affect Course Course Emergency Course: Patient is aware of diagnosis, understands and agrees to treatment plan. Anticipatory guidance given. Patient agrees to follow-up as directed and is aware of reasons to seek care at the emergency department. Portions of this record may have been created with voice recognition software Level of Care: Express Care Visit Vital Signs Vital signs: Reviewed. MDM - URI/Sore Throat MDM Narrative Medical decision making narrative: Differential diagnosis considered: [place] vi
[2024-01-19 10:44] VITALS: BP 137/70; PULSE 78; RESP 16; TEMP 36.4; O2SAT 100
== END 2024-01-19 11:01 | disposition home or self-care (01) ==
PROVIDERS: Emergency Provider Nurse Practitioner
DX: J06.9 Acute upper respiratory infection, unspecified (principal); I10 Essential (primary) hypertension; Z86.73 Personal history of transient ischemic attack (TIA), and cerebral infarction without residual deficits; Z79.82 Long term (current) use of aspirin; Z87.891 Personal history of nicotine dependence
CPT/HCPCS: 99213; G0463

== ENCOUNTER 2024-02-08 09:11 | Emergency (ER) | payer OTHER, SELFPAY ==
[2024-02-08 09:21] VITALS: BP 131/78; PULSE 81; RESP 16; TEMP 36.8; O2SAT 98
--- NOTE | 2024-02-08 10:33 | ED.GENADULT ---
HPI - General Adult General Chief complaint: Upper Respiratory Infection Stated complaint: congested,nasal discharge,chills Source: patient Mode of arrival: ambulatory Limitations: no limitations History of Present Illness HPI narrative: Patient presents for evaluation of sick symptoms. She indicates she was evaluated here a few weeks ago and was given steroids. She states her symptoms improved. Four days ago she developed mucopurulent discharge from the nares, sinus congestion, chills and some pressure in her ears. She is not taking any OTC meds to assist with her symptoms. She smokes 1/2 ppd. Her son has similar symptoms. Related Data Home Medications Medication Instructions Recorded Confirmed atorvastatin 80 mg tablet 80 mg PO HS 04/14/20 02/08/24 ticagrelor 60 mg tablet (Brilinta) 60 mg PO BID 01/19/24 02/08/24 Allergies Allergy/AdvReac Type Severity Reaction Status Date / Time No Known Allergies Allergy Verified 02/08/24 10:04 Review of Systems Review of Systems: CONSTITUTIONAL: Reports chills. Denies fever or sweats. EYES: Denies visual changes, redness, or discharge. ENT: Reports sinus congestion, thick yellow drainage from the nares and pressure in bilateral ears. CARDIOVASCULAR: Denies chest pain, palpitations, or edema. RESPIRATORY: Denies cough or dyspnea. GASTROINTESTINAL: Denies abdominal pain, nausea, vomiting, or diarrhea. GENITOURINARY: Denies dysuria or hematuria. SKIN: Denies rash or itching. MUSCULOSKELETAL: Denies back pain, joint pain, or myalgia. NEUROLOGIC: Denies headache, numbness, dizziness, or weakness. PSYCHIATRIC: Denies anxiety or depression. [facility] Past Medical History Medical History (Updated 02/08/24 @ 10:44 by ADAM Hummel, ELIAN) HTN (hypertension) noncompliant Molar TIA (transient ischemic attack) Surgical History Surgical History History of tubal ligation Hx of section x3 Hx of cholecystectomy Family History Family History Other Adopted Social History Social History (Updated 02/08/24 @ 10:37 by ADAM Hummel, ) Smoking packs per day: 0.5 Smoking cigarettes per day: 10.0 Years smoked: 30 Smoking pack-years: 15.00 Smoking status: Former smoker Tobacco type: cigarettes and cigars Alcohol intake: never Substance use: never Spiritual care concerns: No Exam Narrative: GENERAL: Well-appearing, well-nourished, and in no acute distress. HEAD: Normocephalic, atraumatic. EYES: PERRLA and EOMI. ENT: There is kleenex that she placed in bilateral nares. Oropharynx without tonsillar hypertrophy exudate or other lesions. Bilateral TMs are erythematous and bulging. NECK: Supple. No adenopathy or masses. No carotid bruits or JVD CHEST: Clear to auscultation. No respiratory distress. No wheezes rales or rhonchi HEART: Regular rate and rhythm. No murmur heard. Normal peripheral pulses. ABDOMEN: Soft, nontender, nondistended, normal active bowel sounds. EXTREMITIES: Normal range of motion. No edema. SKIN: Warm, dry, no rash. NEURO: No focal deficits. Alert and oriented x3. PSYCH: Normal mood and affect. Course Course Emergency Course: this is a 53-year-old female who presented for evaluation of sick symptoms. She has evidence of otitis media on exam. COVID was negative. She has not tolerated amoxicillin well in the past. Will dc with cefdinir. Follow up with primary. Go to the ER for worsening symptoms. Patient in agreement with plan of care. Level of Care: Express Care Visit Vital Signs Vital signs: Vital Signs Temperature 36.8 C 02/08/24 09:21 Pulse Rate 81 02/08/24 09:21 Respiratory Rate 16 02/08/24 09:21 Blood Pressure 131/78 02/08/24 09:21 Pulse Oximetry 98 02/08/24 09:21 Oxygen Delivery Room Air 02/08/24 09:21 Temperature 36
== END 2024-02-08 10:56 | disposition home or self-care (01) ==
PROVIDERS: Emergency Provider Nurse Practitioner
DX: H66.93 Otitis media, unspecified, bilateral (principal); Z20.822 Contact with and (suspected) exposure to COVID-19; I10 Essential (primary) hypertension; Z86.73 Personal history of transient ischemic attack (TIA), and cerebral infarction without residual deficits; F17.200 Nicotine dependence, unspecified, uncomplicated
CPT/HCPCS: 87426; 99213; G0463

== ENCOUNTER 2024-05-13 19:51 | Emergency (ER) | payer OTHER, SELFPAY ==
--- NOTE | 2024-05-13 19:56 | ED.GENADULT ---
HPI - General Adult General Chief complaint: Wound/Laceration Stated complaint: Cat Stratches Time Seen by Provider: 05/13/24 20:02 Source: patient, RN notes reviewed and old records reviewed Mode of arrival: ambulatory Limitations: no limitations History of Present Illness HPI narrative: 53-year-old female presents to the [facility] with concerns for an infected cat scratch that occurred on Friday. Has been cleaning it Dorsal aspect between the 1st and 2nd finger is red, puncture wound noted in the center Over 3/4 dorsal aspect, puncture wound, no redness, no fluctuance Treatments prior to arrival: other (Cleaning) Related Data Home Medications Medication Instructions Recorded Confirmed atorvastatin 80 mg tablet 80 mg PO HS 04/14/20 05/13/24 ticagrelor 60 mg tablet (Brilinta) 60 mg PO BID 01/19/24 05/13/24 bupropion HCl (smoking deter) 150 150 mg PO BID 05/13/24 05/13/24 mg tablet,12 hr sustained-release(smoking deterrent) Allergies Allergy/AdvReac Type Severity Reaction Status Date / Time No Known Allergies Allergy Verified 05/13/24 19:52 Review of Systems Review of Systems: All systems reviewed & are unremarkable except as noted in HPI and below Constitutional: Constitutional: Reports no additional constitutional complaints Eyes: Eyes: Reports no additional eye complaints ENT: Reports system reviewed and no additional complaints, except as documented Cardiovascular: Cardiovascular: Reports no additional cardiovascular complaints, Denies chest pain and Denies dyspnea Respiratory: Respiratory: Reports no additional respiratory complaints, Denies chest congestion, Denies cough and Denies dyspnea Gastrointestinal: Gastrointestinal: Reports no additional gastrointestinal complaints, Denies abdominal pain, Denies nausea and Denies vomiting Musculoskeletal: Musculoskeletal: Reports no additional musculoskeletal complaints Integumentary/Breasts: Skin/Breast: Reports as per HPI Neurologic: Reports system reviewed and no additional complaints, except as documented Psychiatric: Psychiatric: Reports no additional psychiatric complaints Allergic/Immunologic: Allergic/Immunologic: Reports no additional allergic/immunologic complaints [facility] Past Medical History Medical History HTN (hypertension) noncompliant Molar TIA (transient ischemic attack) Surgical History Surgical History History of tubal ligation Hx of section x3 Hx of cholecystectomy Family History Family History Other Adopted Social History Social History Smoking packs per day: 0.5 Smoking cigarettes per day: 10.0 Years smoked: 30 Smoking pack-years: 15.00 Smoking status: Former smoker Tobacco type: cigarettes and cigars Alcohol intake: never Substance use: never Spiritual care concerns: No Comments At the time of my signature, I reviewed and agree with the nursing past medical, surgical, social, and family history. There is no relevant family history pertinent to the patient complaint. Exam Const: General: cooperative, healthy appearing, comfortable, no acute distress, well developed, alert and well nourished Nutritional Appearance: well nourished Orientation/consciousness: patient oriented x3 Limitations: no limitations HENMT: Head: normal to inspection Ears: hearing grossly normal bilaterally and external ears normal Face/Nose/Sinus: Normal external nose present, Normal nares present, Normal nasal mucous membranes and turbinates present, normal facial exam and face symmetric Face and sinus: normal facial exam and face symmetric Eyes: General: appearance normal, both eyes and all related structures Alignment and Position: alignment normal Periorbital: periorbital f
[2024-05-13 20:03] VITALS: BP 136/66; PULSE 81; RESP 20; TEMP 37.1; O2SAT 98
[2024-05-13] MEDS: TETANUS,DIPHTHERIA,AC PERTUSSIS ADULT (0.5 ML) BOOSTRIX IM (20:12)
== END 2024-05-13 20:20 | disposition home or self-care (01) ==
PROVIDERS: Emergency Provider Nurse Practitioner
DX: S61.431A Puncture wound without foreign body of right hand, initial encounter (principal); W55.03XA Scratched by cat, initial encounter; Z23 Encounter for immunization; I10 Essential (primary) hypertension; Z86.73 Personal history of transient ischemic attack (TIA), and cerebral infarction without residual deficits; Z87.891 Personal history of nicotine dependence
CPT/HCPCS: 90471; 90715; 99213; G0463

== ENCOUNTER 2024-06-15 15:08 | Outpatient (CLI) | payer OTHER, SELFPAY ==
[2024-06-15 15:38] LABS: Basophils Percent Auto 0.5 % (0.2-1.2); Eosinophils Absolute Auto 0.1 K/mm3 (0-0.3); Eosinophils Percent Auto 1.6 % (0-4.4); Hematocrit 39.7 % (37.0-47.0); Hemoglobin 13.1 g/dL (12.0-15.0); Immature Granulocyte Absolute 0.02 K/mm3 (0.00-0.031); Immature Granulocyte Percent A 0.4 % (0-0.5); Lymphocytes Absolute Auto 1.44 K/mm3 (0.9-3.2); Lymphocytes Percent Auto 25.7 % (18.3-44.2); Mean Corpuscular Hemoglobin 31.3 pg (26-34); Mean Platelet Volume 8.9 fl (7.4-10.4); Monocytes Absolute Auto 0.5 K/mm3 (0.1-0.6); Monocytes Percent Auto 8.6 % (2.6-8.5); Neutrophils Absolute Auto 3.6 K/mm3 (1.3-6.7); Neutrophils Percent Auto 63.2 % (45.5-73.1); Platelet Count Result 319 k/mm3 (150-375); Red Blood Count 4.18 M/mm3 (4.2-5.4); Red Cell Distribution Width 14.7 % (11.5-14.5); White Blood Count 5.6 K/mm3 (4.5-10.0)
[2024-06-15 15:57] LABS: Alanine Aminotransferase 22 U/L (6-35); Albumin Level 4.2 g/dL (3.5-5.1); Anion Gap 7 mmol/L (4-12); Aspartate Amino Transferase 29 U/L (14-36); Bilirubin,Total 0.3 mg/dL (0.2-1.3); Blood Urea Nitrogen 8 mg/dL (7-17); Calcium 8.7 mg/dL (8.4-10.2); Carbon Dioxide 28 mmol/L (22-30); Chloride 105 mmol/L (98-107); Estimated Glomerular Filt Rate > 60; Glucose 80 mg/dL (65-110); Potassium 4.1 mmol/L (3.4-5.0); Sodium 140 mmol/L (137-145)
[2024-06-15 16:13] LABS: Alkaline Phosphatase 64 U/L (38-126)
== END 2024-06-15 15:09 | disposition home or self-care (01) ==
LOC: ANHLAB 15:11
PROVIDERS: Visit Provider Internal Medicine Cardiovascular Disease
DX: I25.10 Atherosclerotic heart disease of native coronary artery without angina pectoris (principal)
CPT/HCPCS: 36415; 80053; 85025

== ENCOUNTER 2024-06-23 14:22 | Emergency (ER) | payer OTHER, SELFPAY ==
[2024-06-23] VITALS (24 sets, daily range): BP systolic 124–153; BP diastolic 65–111; PULSE 69–87; RESP 10–30; TEMP 36.6–36.8; O2SAT 99–100
--- NOTE | ~2024-06-23 | CT_ITS ---
CT pelvis w con Ordering provider: Angel Price History: . right lump to right groin . Comparison: None. Technique: CT pelvis without oral and IV contrast. . Automated exposure control and iterative recons truction technique were employed. The dose-length product was 429.60 mGy-cm. Findings: BONES: No pelvic fracture or hip dislocation. Age appropriate degenerative changes of the visualized lower lumbar spine. Bilateral sacroiliitis. Normal both hips. SUPERFICIAL SOFT TISSUES: Fat stranding seen in the right inguinal area with a soft tissue density me asuring 2.1 x 1.3 cm which is most likely an inflamed lymph node. Follow-up and clinical correlation advised. PELVIC ORGANS: The bladder is underfilled. Cystic area seen in the left side of the pelvis which measures 8.5 x 5.9x 8.1 cm most likely ovarian cystic mass. VISUALIZED BOWEL AND MESENTERY: Normal. No free air or free fluid. No lymphadenopathy. RETROPERITONEUM: Mild atheromatous disease. IMPRESSION: Soft tissue density in the right inguinal area with surrounding fat stranding most likely due to infe ction. Follow-up and clinical correlation advised. Cystic mass in the left side of the pelvis most likely ovarian. Further evaluation with ultrasound is advised. Reviewed, dictated and finalized at location A. IMPRESSION: Soft tissue density in the right inguinal area with surrounding fat stranding m ost likely due to infection. Follow-up and clinical correlation advised. Cystic mass in the left side of the pelvis most likely ovarian. Further evaluat ion with ultrasound is advised.
--- NOTE | 2024-06-23 14:41 | ED.GENADULT ---
HPI - General Adult General Chief complaint: Skin/Abscess/Foreign Body Stated complaint: swelling to cardiac cath site Time Seen by Provider: 06/23/24 15:49 53-year-old female presents reason area to right groin. Patient states she had a cardiac catheterization done on 06/17/2024 and is concerned something is the matter with her groin. Patient denies fevers or abdominal pain. No complaints GENERAL: Well-appearing, well-nourished, and in no acute distress. HEAD: Normocephalic, atraumatic. EYES: PERRLA and EOMI. ENT: Nares clear, no rhinorrhea or epistaxis. Mucous membranes moist. NECK: Supple. CHEST: Clear to auscultation. No respiratory distress. HEART: Regular rate and rhythm. No murmur heard. Normal peripheral pulses. ABDOMEN: Soft, nontender, nondistended, normal active bowel sounds. EXTREMITIES: Normal range of motion. No edema. SKIN: Warm, dry, no rash. Unable the visualized area due to his triage NEURO: No focal deficits. Alert and oriented x3. PSYCH: Normal mood and affect. History of Present Illness HPI narrative: 53 year old female presents with mass right groin. Patient notices a few days ago and states is getting bigger. Patient had a cardiac catheterization on 06/17/2024 at [facility]. Patient has not followed up with Dr. Womack cardiology. Patient denies fevers or any other symptoms. Related Data Home Medications Medication Instructions Recorded Confirmed atorvastatin 80 mg tablet 80 mg PO HS 04/14/20 05/13/24 ticagrelor 60 mg tablet (Brilinta) 60 mg PO BID 01/19/24 05/13/24 bupropion HCl (smoking deter) 150 150 mg PO BID 05/13/24 05/13/24 mg tablet,12 hr sustained-release(smoking deterrent) Allergies Allergy/AdvReac Type Severity Reaction Status Date / Time No Known Allergies Allergy Verified 05/13/24 19:52 Review of Systems Review of Systems: A 10 system review of systems was completed on the patient and is negative except for what is stated in the HPI. Nursing and ancillary documentation was reviewed. [facility] Past Medical History Medical History (Updated 06/23/24 @ 17:44 by Angel Price APRN) HTN (hypertension) noncompliant Molar TIA (transient ischemic attack) Surgical History Surgical History History of tubal ligation Hx of section x3 Hx of cholecystectomy Family History Family History Other Adopted Social History Social History Smoking packs per day: 0.5 Smoking cigarettes per day: 10.0 Years smoked: 30 Smoking pack-years: 15.00 Smoking status: Former smoker Tobacco type: cigarettes and cigars Alcohol intake: never Substance use: never Spiritual care concerns: No Exam Narrative: GENERAL: Well-appearing, well-nourished, and in no acute distress. HEAD: Normocephalic, atraumatic. EYES: PERRLA and EOMI. ENT: Nares clear, no rhinorrhea or epistaxis. Mucous membranes moist. NECK: Supple. CHEST: Clear to auscultation. No respiratory distress. HEART: Regular rate and rhythm. No murmur heard. Normal peripheral pulses. ABDOMEN: Soft, nontender, nondistended, normal active bowel sounds. EXTREMITIES: Normal range of motion. No edema. SKIN: Warm, dry, no rash. golf ball size mass to right groin. no drainage NEURO: No focal deficits. Alert and oriented x3. PSYCH: Normal mood and affect. Course Course Emergency Course: Labs and CT pelvis with contrast to evaluate mass Vital Signs Vital signs: Vital Signs Temperature 36.6 C 06/23/24 14:39 Pulse Rate 81 06/23/24 14:39 Respiratory Rate 16 06/23/24 14:39 Blood Pressure 139/81 06/23/24 14:39 Pulse Oximetry 100 06/23/24 14:39 Oxygen Delivery Room Air 06/23/24 14:39 Temperature 36.6 C 06/23/24 14:39 Pulse Rate 85 06/23/24 15:49 Respiratory Rate 19
[2024-06-23 16:37] LABS: Basophils Percent Auto 0.7 % (0.2-1.2); Eosinophils Absolute Auto 0.1 K/mm3 (0-0.3); Eosinophils Percent Auto 1.8 % (0-4.4); Hematocrit 41.1 % (37.0-47.0); Hemoglobin 13.5 g/dL (12.0-15.0); Immature Granulocyte Absolute 0.03 K/mm3 (0.00-0.031); Immature Granulocyte Percent A 0.7 % (0-0.5); Lymphocytes Absolute Auto 1.19 K/mm3 (0.9-3.2); Lymphocytes Percent Auto 26.9 % (18.3-44.2); Mean Corpuscular HGB Conc 32.8 g/dl (32-36); Mean Corpuscular Hemoglobin 30.8 pg (26-34); Mean Corpuscular Volume 93.8 fl (80-100); Monocytes Absolute Auto 0.5 K/mm3 (0.1-0.6); Monocytes Percent Auto 10.9 % (2.6-8.5); Neutrophils Absolute Auto 2.6 K/mm3 (1.3-6.7); Platelet Count Result 319 k/mm3 (150-375); Red Blood Count 4.38 M/mm3 (4.2-5.4); Red Cell Distribution Width 14.6 % (11.5-14.5); White Blood Count 4.4 K/mm3 (4.5-10.0)
[2024-06-23 16:49] LABS: Prothrombin Time 13.1 Seconds (11.1-14.7)
[2024-06-23 16:50] LABS: Partial Thromboplastin Time 27.1 Seconds (22.3-36.8)
[2024-06-23 16:54] LABS: Alanine Aminotransferase 27 U/L (6-35); Albumin Level 4.4 g/dL (3.5-5.1); Alkaline Phosphatase 75 U/L (38-126); Anion Gap 8 mmol/L (4-12); Aspartate Amino Transferase 35 U/L (14-36); Bilirubin,Total 0.6 mg/dL (0.2-1.3); Blood Urea Nitrogen 7 mg/dL (7-17); Calcium 9.3 mg/dL (8.4-10.2); Carbon Dioxide 28 mmol/L (22-30); Chloride 102 mmol/L (98-107); Estimated CRCL calculation 101 ml/min; Estimated Glomerular Filt Rate > 60; Glucose 94 mg/dL (65-110); Sodium 138 mmol/L (137-145)
[2024-06-23] MEDS: SODIUM CHLORIDE 0.9% IV 1,000 ML 999 ML IV CONT (17:16)
== END 2024-06-23 18:20 | disposition home or self-care (01) ==
PROVIDERS: Emergency Provider Nurse Practitioner Family
DX: L76.82 Other postprocedural complications of skin and subcutaneous tissue (principal); L03.314 Cellulitis of groin; Y84.0 Cardiac catheterization as the cause of abnormal reaction of the patient, or of later complication, without mention of misadventure at the time of the procedure; I10 Essential (primary) hypertension; Z86.73 Personal history of transient ischemic attack (TIA), and cerebral infarction without residual deficits; Z87.891 Personal history of nicotine dependence; Z90.49 Acquired absence of other specified parts of digestive tract
CPT/HCPCS: 36415; 72193; 80053; 85025; 85610; 85730; 96360; 99284; J7030; Q9967

== ENCOUNTER 2024-11-16 09:23 | Outpatient (CLI) | payer OTHER, SELFPAY ==
--- NOTE | ~2024-11-16 | US_ITS ---
EXAMINATION: US arterial duplex LE RT DATE: 11/16/2024 10:04 INDICATION: Right inguinal pain and swelling. TECHNIQUE: Multiple grayscale and Doppler ultrasound images of the right lower extremity arteries wer e obtained. COMPARISON: CT pelvis 06/23/2024 FINDINGS: There is no significant stenosis of right external iliac artery, right common femoral arter y, or proximal right superficial femoral artery. No pseudoaneurysm. There is no abnormal lymphadenopa thy. IMPRESSION: 1. No etiology for the patient's symptoms. Reviewed, dictated and finalized at location B.
--- OUTSIDE RECORDS SUMMARY | 2024-11-16 10:13 | XMS_ITS | Clinical Summary ---
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 Gender Identity Not on file Sexual Orientation Not on file Plan of Treatment Health Maintenance Due Date Last Done Comments Hepatitis C Virus (HCV) Screening 1972 TdaP Immunization 1972 Hepatitis B Immunization (1 of 3 - 19+ 3-dose series) 12/15/1991 Pap Smear 1993 Cervical Cancer Screening (CCS) 2002 HPV/Cotest 2002 Colonoscopy 2017 Colorectal Cancer Screening 2017 Cologuard 2022 Immunochemical Fecal Occult Blood 2022 Mammogram 2022 Pneumococcal Immunization (5 0+ years) (1 of 1 - PCV) 2022 Zoster Immunization (1 of 2) 2022 Influenza Immunization (#1) 2024 SARS-COV-2 Immunization ( season) 2024 09/21/2021, 01/04/2021 Respiratory Syncytial Virus (RSV) Immunization (Adult) (1 - 1-dose 75+ series) 12/15/2047 Meningococcal Immunization (ACWY) Aged Out No longer eligible b ased on patient's age to complete this topic Pneumococcal Immunization Combined Aged Out No longer eligible b ased on patient's age to complete this topic Rotavirus Immunization Aged Out No lo nger eligible based on patient's age to complete this topic
--- OUTSIDE RECORDS SUMMARY | 2024-11-16 10:13 | XMS_ITS | Clinical Summary ---
Author Organization [facility] Address [address] [place] [phone] Care Team Providers Care Coil Winder Name Role Phone No, Physician Primary Care Provider [phone] Allergies No known active allergies Medications aspirin 81 mg enteric coated tablet Take 1 tablet (81 mg total) by mouth daily Active ticagrelor (BRILINTA) 90 mg tablet Take 1 tablet (90 mg total) by mouth 2 (two) times a day 60 tablet 11 06/18/2024 Active atorvastatin (LIPITOR) 80 mg tablet TAKE 1 TABLET BY MOUTH EVERY DAY 90 tablet 2 09/20/2024 Active Active Problems Problem Noted Date Diagnosed Date CAD (coronary artery disease) 06/17/2024 CAD in [place] artery 06/17/2024 Coronary artery disease invo lving [place] coronary artery of [place] heart without angina pectoris 04/28/2024 Encounters Date Type Department Care Team Description 11/09/2024 Telephone [facility] Cardiology [address] [facility] [address] [place] [phone] Sav Lora MD 10/11/2024 Orders Only [facility] Cardiology [address] [facility] [address] [place] [phone] Sav Lora MD 10/06/2024 10:00 AM CAKE ICER AND PACKER Office Visit [facility] Cardiology [address] [facility] [address] [place] [phone] Sav Lora MD Coronary artery disease involving [place] coronary artery of [place] heart without angina pectoris (Primary Dx); History of ST elevation myocardial infarction; Status post angioplasty with stent; History of tobacco abuse; Right inguinal pain from Last 3 Months Surgical History Surgery Date Site/Laterality Comments CARDIAC STENT PLACEMENT SECTION CHOLECYSTECTOMY SINUS SURGERY TUBAL LIGATION Medical History Medical History Date Comments Heart attack (HCC) Stroke (HCC) Gall stones CAD (coronary artery disease) Motion sickness Social History Tobacco Use Types Packs/Day Years Used Date Smoking Tobacco: Former Cigarettes Smokeless Tobacco: Never Tobacco Cessation:Counseling Given: Yes Alcohol Use Standard Drinks/Week Comments Not Currently 0 (1 standard drink = 0.6 oz pur e alcohol) Personal Safety Answer Date Recorded Have you ever been in or are you currently in a harmful physical or emotional relationship or is someone making you feel afraid or unsafe? Denies 06/17/2024 Comments No Sex and Gender Information Value Date Recorded Sex Assigned at Not on file Legal Sex Female 3:14 AM CAKE ICER AND PACKER Gender Identity Not on file Sexual Orientation Not on file Obstetrics History Last Filed Vital Signs Vital Sign Reading Time Taken Comments Blood Pressure 132/78 10/06/2024 10:00 AM CAKE ICER AND PACKER Pulse 85 10/06/2024 10:00 AM CAKE ICER AND PACKER Temperature 36.4 C (97.5 F) 06/18/2024 7:00 AM CDT Respiratory Rate 20 06/18/2024 7:00 AM CDT Oxygen Saturation 98% 10/06/2024 10:00 AM CAKE ICER AND PACKER Inhaled Oxygen Concentration - - Weight 91.6 kg (202 lb) 10/06/2024 10:00 AM CAKE ICER AND PACKER Height 165.1 cm (5' 5 ) 10/06/2024 10:00 AM CAKE ICER AND PACKER Body Mass Index 33.61 10/06/2024 10:00 AM CAKE ICER AND PACKER Plan of Treatment Health Maintenance Due Date Last Done Comments Breast Cancer Screening-Mammogram 1972 Cervical Cancer Screening 1972 Colon Cancer Screening-Colonoscopy 1972 Depression Screening 1972 Hepatitis C Screening 1972 DTaP/Tdap/Td Vaccine (1 - Tdap) 12/15/1983 Hepatitis B Screening 1990 Regular Well Visit/Exam 18-64 1990 Zoster Vaccine (1 of 2) 2022 Covid-19 Vaccine (2 - 2023-2 5 season) 2024 01/04/2021 Influenza Vaccine (#1) 2024 Pneumococcal vaccine <65 Aged Out No longer eligible based on patient's age to complete this topic Medical Devices Implanted Type Area Registered Respiratory Therapist Device Identifier Shelf Expiration Date Model / Serial / Lot Medtronic Card Vasc Surgery 2.50 X 22mm Praveen [place] Rx Coronary Stent [id number] - [id number] Implanted:Qty: 1 on 06/17/2024 by Sav Lora MD at [facility] Medtronic Card Vasc Surgery 10/20/2026 [id number] / / [id number] Medtronic Card Vas Surgery 2.25 X 15mm [place] Rx Coronary Stent [id number] - [id number] Implanted:Qty: 1 on 06/17/2024 by Sav Lora MD at [facility] Medtronic Card Vasc Surgery 08/10/2026 [id number] / / [id number] [employer] Mynx Control 6-7fr 2 Mode Balloon Catheter Sealant Lock Syringe [id number] - [id number] Implanted:Qty: 1 on 06/17/2024 by Sav Lora MD at [facility] [employer] 05/13/2026 [id number] / / [id number] Insurance [facility] Care Teams Coil Winder Relationship Specialty Start Date End Date No, Physician PCP - General 09/18/21
--- OUTSIDE RECORDS SUMMARY | 2024-11-16 10:13 | XMS_ITS | Referral Summary ---
Author Organization [facility] Address [address] [place] [phone] Care Team Providers Care Appliance Adjuster Name Role Phone No, Physician Primary Care Provider [phone] Encounters Date Type Department Care Team Description 11/09/[address] [facility] Cardiology [address] [place] [address] [place] [phone] Sav Lora MD 10/11/2024 Orders Only [facility] Cardiology [address] [place] [address] [place] [phone] Sav Lora MD 10/06/2024 10:00 AM MUSIC AGENT Office Visit [facility] Cardiology [address] [place] [address] [place] [phone] Sav Lora MD Coronary artery disease involving [place] coronary artery of [place] heart without angina pectoris (Primary Dx); History of ST elevation myocardial infarction; Status post angioplasty with stent; History of tobacco abuse; Right inguinal pain from Last 3 Months Allergies No known active allergies Medications aspirin [...] CAD (coronary artery disease) 06/17/2024 CAD in [place] artery 06/17/2024 Coronary artery disease invo lving [place] coronary artery of [place] heart without angina pectoris 04/28/2024 Social History Tobacco Use Types Packs/Day Years [...] on file Legal Sex Female 3:14 AM MUSIC AGENT Gender Identity Not on file Sexual Orientation Not on file Last Filed Vital Signs Vital Sign Reading Time Taken Comments Blood Pressure 132/78 10/06/2024 10:00 AM MUSIC AGENT Pulse 85 10/06/2024 10:00 AM MUSIC AGENT Temperature 36.4 C (97.5 F) 06/18/2024 7:00 AM CDT Respiratory Rate 20 06/18/2024 7:00 AM CDT Oxygen Saturation 98% 10/06/2024 10:00 AM MUSIC AGENT Inhaled Oxygen Concentration - - Weight 91.6 kg (202 lb) 10/06/2024 10:00 AM MUSIC AGENT Height 165.1 cm (5' 5 ) 10/06/2024 10:00 AM MUSIC AGENT Body Mass Index 33.61 10/06/2024 10:00 AM MUSIC AGENT Plan of Treatment Not on file Medical Devices Implanted Type Area Sales Order Coordinator Device Identifier Shelf Expiration Date Model / Serial / Lot Medtronic [facility] Vas Surgery 2.[address] [place] Rx Coronary Stent [id number] - [id number] Implanted:Qty: 1 on 06/17/2024 by Sav Lora MD at [facility] Medtronic Card Vas Surgery 10/20/2026 [id number] / / [id number] Medtronic [facility] Surgery 2.[address] [place] Rx Coronary Stent [id number] - [id number] Implanted:Qty: 1 on 06/17/2024 by Sav Lora MD at [facility] Medtronic [facility] Vas Surgery 08/10/2026 [id number] / / [id number] [employer] Mynx Control 6-7fr 2 Mode Balloon Catheter Sealant Lock Syringe [id number] - [id number] Implanted:Qty: 1 on 06/17/2024 by Sav Lora MD at [facility] [employer] 05/13/2026 [id number] / / [id number] Insurance [facility] Care Teams Appliance Adjuster Relationship Specialty Start Date End Date No, Physician PCP - General 09/18/21
== END 2024-11-16 09:24 | disposition home or self-care (01) ==
PROVIDERS: Visit Provider Internal Medicine Cardiovascular Disease
DX: R10.31 Right lower quadrant pain (principal)
CPT/HCPCS: 93926

== ENCOUNTER 2025-06-17 10:16 | Emergency (ER) | payer OTHER, SELFPAY ==
--- NOTE | ~2025-06-17 | XR_ITS ---
EXAMINATION: XR chest 2V 06/17/2025 11:49 INDICATION: Cough. TECHNIQUE:Frontal and lateral images of the chest were obtained. COMPARISON: 08/04/2023 FINDINGS: Heart is not enlarged. No pneumothorax. No pleural effusion. No free air the diaphragm. IMPRESSION: 1: No acute pulmonary process identified. Reviewed, dictated and finalized at location Q.
[2025-06-17 10:18] VITALS: BP 130/66; PULSE 98; RESP 20; TEMP 36.8; O2SAT 99
[2025-06-17 10:39] VITALS: RESP 19; O2SAT 95
[2025-06-17 10:41] VITALS: BP 130/58; PULSE 90; RESP 20; O2SAT 97
[2025-06-17 10:46] VITALS: BP 122/74; PULSE 91; RESP 18; O2SAT 99
--- NOTE | 2025-06-17 10:53 | ED.URI ---
HPI - URI/Sore Throat General Chief Complaint: Upper Respiratory Infection Stated Complaint: ear infection and runny nose Time Seen by Provider: 06/17/25 10:44 Source: patient Mode of arrival: ambulatory Limitations: no limitations History of Present Illness HPI Narrative: This is a pleasant 54-year-old female patient with past history significant psoriasis, previous TIA, hypertension, and previous cholecystectomy who comes to the emergency room complaints of 1 week of sinus congestion, pressure and rhinorrhea with right ear pain. Patient endorses associated chills and sweats without any subjective fevers. She states her cough has turned productive starting yesterday. She is productive of white phlegm. No hemoptysis. Patient has no nausea/vomiting/diarrhea headaches. She has taken [id number] decongestants and medications without any relief of her symptoms. Patient states that her a psoriasis is starting to flare up overall back pain that is concerning was getting into her ears. She denies any open areas or drainage. 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 No recent trauma. Related Data Home Medications ?Medication ?Instructions ?Recorded ?Confirmed ?Last Taken ?Type atorvastatin 80 mg tablet 80 mg PO HS 04/14/20 05/13/24 Unknown History ticagrelor 60 mg tablet (Brilinta) 60 mg PO BID 01/19/24 05/13/24 Unknown History bupropion HCl (smoking deter) 150 150 mg PO BID 05/13/24 05/13/24 Unknown History mg tablet,12 hr sustained-release(smoking deterrent) Allergies Allergy/AdvReac Type Severity Reaction Status Date / Time No Known Allergies Allergy Verified 06/17/25 10:21 Review of Systems Review of Systems: All systems reviewed & are unremarkable except as noted in HPI and below PMFSH Past Medical History Medical History (Updated 06/17/25 @ 12:09 by LYLE Arias) Molar TIA (transient ischemic attack) HTN (hypertension) noncompliant Surgical History Surgical History Hx of section x3 History of tubal ligation Hx of cholecystectomy Family History Family History Other Adopted Social History Social History Smoking packs per day: 0.5 Smoking cigarettes per day: 10.0 Years smoked: 30 Smoking pack-years: 15.00 Smoking status: Former smoker Tobacco type: cigarettes and cigars Alcohol intake: never Substance use: never Spiritual care concerns: No Exam Const: General: healthy appearing, no acute distress and alert Nutritional Appearance: well nourished Orientation/consciousness: patient oriented x3 Limitations: no limitations HENMT: Head: normal to inspection Ears: external ears normal, EAC's normal and TM abnormal erythematous (Right tympanic membrane) Face/Nose/Sinus: Normal external nose present and Nasal discharge present purulent on the left Face and sinus: sinus tenderness (Maxillary and frontal bilateral) Mouth: Yes Normal oral and palatal mucosa present, Yes lip normal and Yes moist mucous membranes Throat: posterior oropharynx normal and uvula midline Other: There is postnasal drip present with cobblestone pattern 1st year or parents. No erythema Eyes: Conjunctivae: conjunctivae normal Pupils: Equal, round and reactive pupils present Neck: Neck: normal visual inspection Chest: Chest palpation & inspection: normal inspection of the chest Resp: Effort & Inspection: normal respiratory effort Auscultation: rhonchi (Coarse rhonchi) lower bilaterally Cardio: Rate: regular rate Rhythm: regular rhythm Heart sounds: no murmurs GI: GI Palp: Yes Soft to palpation and No Tenderness to palpation present (GI) Back/Spine/Pelvis: Back: no CVA tenderness Skin: General skin exam: normal color Rashes: no rashes Neuro: General: patient oriented x3, moves all extremities and no focal motor deficits Extrem: Other: Freely and equally moves all extremities well without deficit. Psych: Mental Status: mental status grossly normal Affect: normal affect Course Course Emergency Course: Chest x-ray and COVID swab ordered. Pt's physical exam is overall reassuring. She does not appear toxic. Patient's COVID/influenza/RC are negative. In addition chest x-ray is negative for any acute cardiopulmonary abnormality. Patient will be discharged home with prescriptions for Augmentin as well as prednisone. She is advised follow-up with a primary care provider in approximately 1 week. For pain she may take [id number] Tylenol or ibuprofen. Patient verbalizes understanding and all questions answered her satisfaction prior to discharge in stable condition. Vital Signs Vital signs: Vital Signs Temperature 98.2 F 06/17/25 10:18 Pulse Rate 98 06/17/25 10:18 Respiratory Rate 20 06/17/25 10:18 Blood Pressure 130/66 06/17/25 10:18 Pulse Oximetry 99 06/17/25 10:18 Oxygen Delivery Room Air 06/17/25 10:18 Temperature 98.2 F 06/17/25 10:18 Pulse Rate 98 06/17/25 10:18 Respiratory Rate 20 06/17/25 10:18 Blood Pressure 130/66 06/17/25 10:18 Pulse Oximetry 99 06/17/25 10:18 Oxygen Delivery Room Air 06/17/25 10:51 MDM - URI/Sore Throat MDM Narrative Medical decision making narrative: See ED course -patient does not meet sepsis criteria Differential Diagnosis Differential diagnosis: Likely upper respiratory infection, otitis media, sinusitis, bronchitis and other (Community-acquired pneumonia) Lab Data Labs: Lab Results 06/17/25 Range/Units 11:00 Influenza A (RT-PCR) Negative (Negative) Influenza B (RT-PCR) Negative (Negative) RSV (RT-PCR) Negative (Negative) SARS-CoV-2 RNA (RT-PCR) Negative (Negative) Discharge Plan Discharge Clinical Impression: Sinusitis, Otitis media Patient Disposition: Home Condition: Stable Instructions: Antibiotic Form, Sinusitis (ED), Ear Infection (ED) Additional Instructions: Thank you for allowing us to evaluate you in the emergency room. Your chest x-ray as well as your COVID/influenza/RSV test was negative. Your physical exam does support diagnoses of sinus infection as well as right otitis media. Your being started an antibiotic and steroid. Please take these to completion and take with food to avoid stomach upset. In addition you may take [id number] Tylenol ibuprofen as needed for pain and bwih-etn-jjkzlyd Sudafed as needed for sinus congestion. Please follow-up with primary care provider in approximately 1 week if her symptoms are not improving. Patient Language: Croatian Prescriptions: New amoxicillin-pot clavulanate [Augmentin] 500-125 mg tablet 1 tablet PO TID Qty: 30 0RF prednisone 50 mg tablet 50 mg PO DAILY Qty: 7 0RF No Action Brilinta 60 mg tablet 60 mg PO BID amoxicillin-pot clavulanate 875-125 mg tablet 1 tablet PO Q12H Qty: 20 0RF bupropion HCl (smoking deter) 150 mg tablet extended release 12 hr 150 mg PO BID atorvastatin 80 mg Tablet 80 mg PO HS sulfamethoxazole-trimethoprim 800-160 mg tablet 1 tablet PO Q12H Qty: 14 0RF diphenhydramine HCl [Benadryl Allergy] 25 mg tablet 25 mg PO TID PRN (Reason: itching) Qty: 14 0RF Follow-up/Referrals: Domo Krueger MD [Physician, Family Practice] UNKNOWN,DOCTOR [Non-Staff] Time of Disposition: 12:09
[2025-06-17 11:16] VITALS: BP 122/67; PULSE 87; RESP 19; O2SAT 97
[2025-06-17 11:31] VITALS: BP 121/62; PULSE 82; RESP 20; O2SAT 97
[2025-06-17 11:51] LABS: Influenza A QL RT-PCR Negative (Negative); Influenza B QL RT-PCR Negative (Negative); RSV RNA, RT-PCR Negative (Negative); SARS-CoV-2 RNA PCR Negative (Negative)
== END 2025-06-17 12:19 | disposition home or self-care (01) ==
PROVIDERS: Emergency Provider Nurse Practitioner Adult Health
DX: J32.9 Chronic sinusitis, unspecified (principal); H66.90 Otitis media, unspecified, unspecified ear; Z20.822 Contact with and (suspected) exposure to COVID-19
CPT/HCPCS: 71046; 87637; 99283

== ENCOUNTER 2025-07-17 12:25 | Emergency (ER) | payer OTHER, SELFPAY ==
[2025-07-17 12:33] VITALS: BP 135/60; PULSE 78; RESP 18; TEMP 36.5; O2SAT 99
--- NOTE | 2025-07-17 12:33 | ED.EAR ---
HPI - Ear Problem General Chief complaint: Skin/Abscess/Foreign Body Stated complaint: Ears Irritation/Rash Time Seen by Provider: 07/17/25 12:37 Source: patient and RN notes reviewed Mode of arrival: ambulatory Limitations: no limitations History of Present Illness HPI Narrative: 54-year-old female presents with concern for brain ear pain and drainage. Reports ear canal itchiness. She reports history of eczema, she was treated recently for otitis media and eczema with steroids and Augmentin. She reports her symptoms cleared up but she also got a yeast infection which she remains untreated. She reports symptoms flared up again with itchiness in both ear canals, pain and drainage from the right. MD Complaint: ear pain Related Data Home Medications ?Medication ?Instructions ?Recorded ?Confirmed ?Last Taken ?Type atorvastatin 80 mg tablet 80 mg PO HS 04/14/20 07/17/25 Unknown History ticagrelor 60 mg tablet (Brilinta) 60 mg PO BID 01/19/24 07/17/25 Unknown History bupropion HCl (smoking deter) 150 150 mg PO BID 05/13/24 07/17/25 Unknown History mg tablet,12 hr sustained-release(smoking deterrent) Allergies Allergy/AdvReac Type Severity Reaction Status Date / Time No Known Allergies Allergy Verified 06/17/25 10:21 Review of Systems Review of Systems: CONSTITUTIONAL: Denies malaise, chills, sweats, or fever. EYES: Denies visual changes, redness, or discharge. ENT: Denies rhinorrhea, congestion, sinus pain, and sore throat. Reports right ear pain, itchiness and drainage. Left ear itchiness CARDIOVASCULAR: Denies chest pain, palpitations, or edema. RESPIRATORY: Denies cough. Denies dyspnea. GASTROINTESTINAL: Denies abdominal pain, nausea, vomiting, diarrhea SKIN: Denies rash or itching. MUSCULOSKELETAL: Denies myalgia. NEUROLOGIC: Denies headache. All systems reviewed & are unremarkable except as noted in HPI and below PMFSH Past Medical History Medical History (Updated 07/17/25 @ 12:44 by Gris Sanchez APRN) Molar TIA (transient ischemic attack) HTN (hypertension) noncompliant Surgical History Surgical History Hx of section x3 History of tubal ligation Hx of cholecystectomy Family History Family History Other Adopted Social History Social History Smoking packs per day: 0.5 Smoking cigarettes per day: 10.0 Years smoked: 30 Smoking pack-years: 15.00 Tobacco type: cigarettes and cigars Alcohol intake: never Substance use: never Spiritual care concerns: No Comments At time of signature, agree with nursing past medical, surgical, social and family history. There is no relevant family history pertinent to the presenting complaint Exam Narrative: GENERAL: Well-appearing, well-nourished, and in no acute distress. HEAD: Normocephalic EYES: PERRLA, conjunctivae clear ENT: Nares clear. Mucous membranes moist. TM pearly soria with sharp light reflex on the left, erythematous in full on the right; right tragal tenderness, EAC and right external ear erythematous, flaky with plaque. No post or pre-auricular erythema, induration, or warmth noted. Oropharynx not erythematous without lesions. Tonsils not enlarged and without exudate, no drooling, no hoarseness, no trismus, uvula midline. NECK: Supple. No lymphadenopathy CHEST: Clear to auscultation, breath sounds equal. No wheezing, rhonchi, rales, or stridor. No respiratory distress, speaks in full sentences. HEART: Regular rate and rhythm. No murmur heard. SKIN: Warm, dry, no rash. NEURO: Alert and oriented x3. PSYCH: Normal mood and affect Course Course Emergency Course: Patient is aware of diagnosis, understands and agrees to treatment plan. Anticipatory guidance given. Patient agrees to follow-up as directed and is aware of reasons to seek care at the emergency department. Portions of this record may have been created with voice recognition software Level of Care: Express Care Visit Vital Signs Vital signs: Reviewed. Medical Decision Making MDM Narrative Medical decision making narrative: I evaluated this in the express care. History is obtained from patient who is an independent historian and physical exam was performed.? Available medical records were reviewed. ? Exam findings and relevant testing show no acute concerns or changes; patient is non-toxic appearing and is in no distress. Differential diagnosis considered: Cartwright virus, strep pharyngitis, allergic rhinitis, upper respiratory tract infection, sinusitis, rhinosinusitis, nasopharyngitis. viral pharyngitis, otitis media, otitis externa, otitis effusion, pre/post auricular cellulitis, mastoiditis, cerumen impaction, foreign body. Exam findings show no acute concerns or changes; patient is non-toxic appearing and is in no distress. Patient is appropriate for outpatient treatment and follow-up. ? Differential diagnosis and treatment plan were discussed with the patient. Patient agrees with discussion and after shared medical decision making agrees with plan of care. All questions were answered to the patient's satisfaction. Patient is appropriate for outpatient treatment and follow-up. Critical Care Time Critical Care Time Critical Care Time: No Discharge Plan Discharge Clinical Impression: Otitis media, Eczema of right external ear Patient Disposition: Home Condition: Stable Instructions: Antibiotic Form, How to Use Ear Drops (ED) Additional Instructions: 1) Please follow-up with a primary care doctor for re-evaluation. 2) If you have any worsening of symptoms or any other urgent concerns please go to the ER. 3) Please take medications as prescribed and continue taking your home medications as usual. 4) Please read and follow information included in discharge instructions. Patient Language: Bengali Prescriptions: New triamcinolone acetonide 0.1 % cream 1 applic TOPICAL BID 7 Days Qty: 80 0RF cefdinir 300 mg capsule 300 mg PO Q12H 10 Days Qty: 20 0RF [id number] 3.5-10,000-1 mg/mL-unit/mL-% drops,suspension 4 drop RIGHT EAR Q8H 7 Days Qty: 10 0RF fluconazole 150 mg tablet 150 mg PO Q48H 3 Days Qty: 2 0RF Rx Instructions: take one dose now, and a second dose if symptoms remain in 48 hours No Action ticagrelor [Brilinta] 60 mg tablet 60 mg PO BID amoxicillin-pot clavulanate 875-125 mg tablet 1 tablet PO Q12H Qty: 20 0RF bupropion HCl (smoking deter) 150 mg tablet extended release 12 hr 150 mg PO BID amoxicillin-pot clavulanate [Augmentin] 500-125 mg tablet 1 tablet PO TID Qty: 30 0RF prednisone 50 mg tablet 50 mg PO DAILY Qty: 7 0RF atorvastatin 80 mg Tablet 80 mg PO HS sulfamethoxazole-trimethoprim 800-160 mg tablet 1 tablet PO Q12H Qty: 14 0RF diphenhydramine HCl [Benadryl Allergy] 25 mg tablet 25 mg PO TID PRN (Reason: itching) Qty: 14 0RF Follow-up/Referrals: PHYSICIAN,DEBONE SUPERVISOR [Primary Care Provider, Internal Medicine] Time of Disposition: 12:45
== END 2025-07-17 12:56 | disposition home or self-care (01) ==
PROVIDERS: Emergency Provider Nurse Practitioner
DX: H66.91 Otitis media, unspecified, right ear (principal); H60.541 Acute eczematoid otitis externa, right ear; F17.210 Nicotine dependence, cigarettes, uncomplicated; F17.290 Nicotine dependence, other tobacco product, uncomplicated; I10 Essential (primary) hypertension; Z86.73 Personal history of transient ischemic attack (TIA), and cerebral infarction without residual deficits
CPT/HCPCS: 99213; G0463